=== PATIENT | male | born 1970 | race Two or more races ===

== ENCOUNTER 2024-12-18 15:57 | Emergency (ER) | payer MEDICAID, SELFPAY ==
[2024-12-18 15:59] VITALS: BMI 34.8
[2024-12-18 16:50] VITALS: BP 147/82; PULSE 68; RESP 18; TEMP 37.2; O2SAT 95
--- NOTE | 2024-12-18 17:30 | PD.EDSKIN ---
ED Skin Abcess FB-RME/HPI General Chief complaint: Skin/Abscess/Foreign Body Stated complaint: ABCESS LEFT BUTTOCK x 2 MONTHS, SENT FROM CLINIC Time Seen by Provider: 12/18/24 17:07 Arrival date/time: 12/18/24 15:57 Mode of arrival: ambulatory Limitations: no limitations RME / HPI RME / HPI narrative: 54-year-old male presents for evaluation of perianal abscess x 2 months. Patient reports sharp, constant pain in his left perianal region radiating to his testicles. He states that he was seen by primary care today who advised him to come to the ED for further evaluation and treatment. He reports that his has been expressing purulent drainage from his abscess daily. He denies testicular pain, testicular swelling, skin changes to testicular region. Denies fever, chills, chest pain, shortness of breath. He notes that he had to have a perianal abscess surgically excised in April from which he recovered well with no reported complication. Related Data Previous Rx's ?Medication ?Instructions ?Recorded amoxicillin 875 mg-potassium 1 tab PO BID 10 days #20 tabs 12/18/24 clavulanate 125 mg tablet doxycycline hyclate 100 mg capsule 100 mg PO BID 10 days #20 caps 12/18/24 ibuprofen 800 mg tablet 800 mg PO Q8H PRN pain #14 tabs 12/18/24 Allergies Allergy/AdvReac Type Severity Reaction Status Date / Time No Known Allergies Allergy Verified 12/19/24 10:19 Review of Systems Constitutional Constitutional: Denies excessive sweating, Denies fever(s), Denies headache(s) and Denies night sweats Eyes Eyes: Denies blurry vision and Denies change in vision ENT Ears, Nose, Mouth, and Throat: Denies facial pain and Denies headache(s) Cardiovascular Cardiovascular: Denies chest pain, Denies dyspnea and Denies leg edema Respiratory Respiratory: Denies cough and Denies dyspnea Gastrointestinal Gastrointestinal: Denies nausea and Denies vomiting Genitourinary Genitourinary: Denies dysuria, Denies flank pain, Denies genital pain, Denies hematospermia, Denies hematuria, Denies penile discharge, Denies scrotal swelling, Denies testicular mass and Denies testicular pain Musculoskeletal Musculoskeletal: Denies abnormal gait, Denies arthralgias and Denies tingling Integumentary/Breasts Skin/Breast: Reports changing lesions, Reports erythema, Reports furuncle, Reports new lesions, Reports non-healing lesions, Denies rash, Reports sores and Denies wounds Neurologic Neurologic: Denies abnormal gait, Denies headache(s) and Denies tingling Endocrine Endocrine: Denies excessive sweating Past Medical History Past Medical History NEUROLOGIC: Negative Neurological Disorders or Seizures CARDIAC: Negative Cardiac Disorders or Congestive Heart Failure RESPIRATORY: Negative Chronic Obstructive Pulmonary Disease (COPD) or Asthma GASTROINTESTINAL: Negative Gastrointestinal Disorders GENITOURINARY: Negative Genitourinary Disorders or Renal Disease MUSCULOSKELETAL: Negative Musculoskeletal Disorders ENDOCRINE: Negative Endocrine Disorders, Diabetes Mellitus Type 1 or Diabetes Mellitus Type 2 HEMATOLOGIC: Negative Blood Disorders or Sickle Cell Disease OTHER HISTORY: Negative Autoimmune Disease, Blood Transfusions, Blood Transfusion Reaction, Anesthesia Reactions, MRSA, Vancomycin-Resistant Enterococci, Clostridium Difficile or Cancer Family History FAMILY HISTORY: Negative Family Psychiatric Problems, Family Respiratory Disorders, Family Cardiac Disorders, Family Gastrointestinal Problems, Family Cancer, Family Surgery or Family Anesthesia Reaction Surgical History SURGICAL: Negative Abdominal Surgery or Nephrectomy Social History SMOKING STATUS: Never smoker ED Exam General Limitations: Present no limitations General appearance: Present alert and in no apparent distress Head Head exam: Present atraumatic and normocephalic Eye Eye exam: Present normal appearance and EOMI ENT ENT exam: Present mucous membranes moist Neck Neck exam: Present normal inspection and full ROM Chest Chest inspection: Present normal inspection and symmetric chest wall rise Respiratory Respiratory exam: Present normal lung sounds bilaterally; Absent respiratory distress Cardiovascular Cardiovascular exam: Present regular rate and +S1 Abdominal Exam Abdominal exam: Present soft; Absent distention Rectal Exam Rectal exam: Present normal rectal tone and other (Superior perirectal abscess with purulent drainage and mild surrounding erythema. No tenderness or swelling to scrotal skin. No induration or crepitus to perianal and scrotal region. No overlying skin changes.) exam: Present normal testicular lie; Absent testicular tenderness or scrotal swelling Expanded Exam exam: Present erythema; Absent induration Extremities Exam Extremities exam: Present normal inspection and full ROM Back Exam Back exam: Present normal inspection and full ROM Neurological Exam Neurological exam: Present alert and normal gait Psychiatric Psychiatric exam: Present normal affect Skin Skin exam: Present warm and dry Course Quality Measures none Orders Category Date Time Status Amoxicillin/Pot Clav 875 [Augmentin 875] Med 12/18/24 17:25 Discontinued 1 tab PO X1 ONE Doxycycline [Vibramycin] Med 12/18/24 17:25 Discontinued 100 mg PO X1 ONE HYDROcodone*/APAP 7.5/325 [Reading 7.5/325] Med 12/18/24 17:25 Discontinued 1 tab PO X1 ONE Vital Signs Vital signs: Vital Signs Temperature 98.9 F 12/18/24 16:50 Pulse Rate 68 12/18/24 16:50 Respiratory Rate 18 12/18/24 16:50 Blood Pressure 147/82 H 12/18/24 16:50 Pulse Oximetry (%) 95 12/18/24 16:50 Oxygen Delivery Method Room Air 12/18/24 16:50 Pulse ox 95% on room air, within normal limits. Skin / Abscess / Foreign Body MDM Narrative MDM Narrative:: 54-year-old male presented for evaluation of perianal abscess. Patient reported history of excision of similar lesion in April. Vital signs reassuring. Actively draining abscess on evaluation with mild erythema. Clinical presentation not consistent with cellulitis. No overlying skin changes and no tenderness to testicular palpation therefore less concern for Rosangela's gangrene at this time. Reassuring vital signs point away from systemic infection currently. Ultimately patient was discharged with outpatient antibiotics and plan to follow-up with primary care within the week. I discussed extensively with the patient need for good hygiene practices and advised him to stop having his expressed the lesion at this time. We discussed sitz bath's and possible need for recurrent excision if his lesion does not improve. Patient was given the opportunity to ask questions and vocalized understanding of the plan. Patient stable at time of discharge. Patient data External records reviewed:: [facility] previous records Clinical information provided by:: patient and spouse Social determinants that could affect healthcare access:: none Patient has the following chronic illnesses:: None reported. How is presenting disease/condition affected by chronic disease/condition?: no chronic disease Evaluation data The following diagnostics were reviewed and interpreted by me:: other (specify) Lab and/or radiology exams considered but not ordered:: Considered not ordered. Interpretation Summary: Considered not ordered. Medications / Prescriptions Medications or Prescriptions considered but not ordered:: Rx given. Medication administrations:: Medication Administration History Discontinued Medications Hydrocodone Bitart/Acetaminophen (Hydrocodone/Apap 7.5/325 Tablet) 1 tab PO X1 ONE Stop: 12/18/24 17:26 Last Admin: 12/18/24 17:45 Dose: 1 tab Documented By: NADINE Amoxicillin/Clavulanate Potassium (Amoxicillin/Pot Clav 875 Tablet) 1 tab PO X1 ONE Stop: 12/18/24 17:26 Last Admin: 12/18/24 17:46 Dose: 1 tab Documented By: NADINE Doxycycline Hyclate (Doxycycline 100 Mg Tablet) 100 mg PO X1 ONE Stop: 12/18/24 17:26 Last Admin: 12/18/24 17:46 Dose: 100 mg Documented By: NADINE Rx given. Consultations Consultation(s) initiated? (list below): No Diagnosis Skin/Abscess Differential Diagnosis: abscess of skin or subcutaneous tissue, herpes zoster, cellulitis and other (Foreign years gangrene, cellulitis.) Most likely diagnosis given after review of the tests above:: Perianal abscess. Admission Indicated Admission indicated?: not indicated Admission Request Was there a request for admission?: No Disposition Plan Disposition Plan: Discharge Discharge Attestation Discharge Attestation: The patient and all family members were given an opportunity to ask questions and understood the discharge instructions. Discharge instructions specifically effects, indications for sooner follow up or return to the emergency department, and the expected course of current diagnosis. Patient condition: Stable Discharge Plan Plan Patient Disposition: HOME (Self Care) Discharge Disposition comment: stable Prescriptions/Referrals Prescriptions/Med Rec: New amoxicillin-pot clavulanate 875-125 mg tablet 1 tab PO BID 10 Days Qty: 20 0RF doxycycline hyclate 100 mg capsule 100 mg PO BID 10 Days Qty: 20 0RF ibuprofen 800 mg tablet 800 mg PO Q8H PRN (Reason: pain) Qty: 14 0RF Problem List Clinical Impression: Perianal abscess Impression comment: Take Augmentin and doxycycline twice daily for abscess. Take Tylenol or ibuprofen every 6 hours for pain. Do sitz bath's (shallow, warm bath with Epsom salt) 3 times daily for the next x 4 days. Follow-up with primary care within the next week for wound recheck. Return to the ED if your symptoms worsen or change. Patient/Caregiver Discharge Instructions Education Materials: ED ABSCESS Larisa-Anal Abx only Print Language: Armenian Stand Alone Forms: Ciara Award Info., Patient Portal Info Letter PA/MOI Supervising Physician PA/MOI Supervising Physician: Dr. Viera
[2024-12-18] MEDS: HYDROcodone/APAP 7.5/325 TABLET 1 TAB PO (17:45)
[2024-12-18] MEDS: AMOXICILLIN/POT CLAV 875 TABLET 1 TAB PO (17:46)
[2024-12-18] MEDS: DOXYCYCLINE 100 MG TABLET PO (17:46)
== END 2024-12-18 18:04 | disposition home or self-care (01) ==
LOC: SERX 17:40
PROVIDERS: Emergency Provider Emergency Medicine; PCP Nurse Practitioner Family
DX: K61.0 Anal abscess (principal)
CPT/HCPCS: 99283; A9270

== ENCOUNTER → 2024-12-18 | Outpatient (BNVA) | payer MEDICAID, SELFPAY | END | disposition home or self-care (01) | PROVIDERS: PCP Nurse Practitioner Family; Referring Provider Nurse Practitioner Family; Visit Provider Nurse Practitioner Family | DX: L02.215 Cutaneous abscess of perineum (principal) | CPT/HCPCS: 99214 ==

== ENCOUNTER → 2024-12-19 | Outpatient (BNVA) | payer MEDICAID, SELFPAY | END | disposition home or self-care (01) | PROVIDERS: PCP Nurse Practitioner Family; Referring Provider Nurse Practitioner Family; Visit Provider Nurse Practitioner Family | DX: L02.215 Cutaneous abscess of perineum (principal) | CPT/HCPCS: 99212; G0463 ==

== ENCOUNTER → 2024-12-22 | Outpatient (CLI) | payer MEDICAID, SELFPAY ==
--- NOTE | 2024-12-22 14:00 | XR_ITS ---
Examination: CT abdomen, without intravenous contrast. CT pelvis, without intravenous contrast. CT abdomen, with intravenous contrast. CT pelvis, with intravenous contrast. 2-D sagittal coronal reconstructions. Date and time of exam:December 22, 2024 at 1445 hours Comparison May 07, 2024 INDICATIONS: Abdominal pain Rectal pain and swelling today CTDI: vol (mGy) 28.2 DLP: (mGycm) 1480 Technique: Multiple 3.0 axial images of the abdomen and pelvis without intravenous contrast, 3.0 mm slice thickness. Multiple 3.0 postcontrast images abdomen and pelvis also obtained, post intravenous injection 60 cc [id number] 2-D sagittal and coronal reconstructions. Low dose protocols were performed. One or more of the following dose reduction techniques were used; automated exposure control, adjustment of the mA and/or KV according to patient size, use of iterative reconstruction technique. Findings: Diffuse fatty infiltration throughout the liver no focal liver or splenic lesions No gallstones No pancreatic or adrenal mass No renal or ureteral calculi, no hydronephrosis Aorta normal size Normal appendix No bowel obstruction No diverticulitis Normal seminal vesicles No prostatomegaly Rectal wall does not appear thickened Mild left perianal inflammatory change, axial image 231 through 243 with small fistulous tract extending from the left anus to the left intergluteal fold No perianal abscess Osseous structures intact IMPRESSION: Left perianal inflammatory change Small fistulous tract from the left anus to the left intergluteal fold No perianal abscess
[2024-12-22 14:31] LABS: Alanine Aminotransferase 17 U/L (10-49); Albumin, Serum 4.2 gm/dL (3.5-5.0); Albumin/Globulin Ratio 1.4 (1.2-2.2); Alkaline Phosphatase 64 U/L (46-116); Anion Gap 6 (7-16); Aspartate Amino Transferase 21 U/L (0-34); BUN/Creatinine Ratio 21 Ratio (12-20); Bilirubin,Total 0.5 mg/dL (0.3-1.2); Blood Urea Nitrogen 21 mg/dL (9-23); Calcium 8.9 mg/dL (8.3-10.6); Calcium (Corrected) 8.9 mg/dL (8.5-10.1); Carbon Dioxide 25.7 mMol/L (20.0-31.0); Chloride 109 mMol/L (98-107); Globulin 2.9 gm/dL (2.3-3.5); Glucose 97 mg/dL (74-106); Osmolality,Calculated 284 (275-295); Potassium 4.4 mMol/L (3.4-5.1); Sodium 141 mMol/L (136-145); Total Protein 7.1 gm/dL (5.7-8.2); eGFR > 60 See Note
== END | disposition home or self-care (01) ==
LOC: SCAT 13:30
PROVIDERS: PCP Nurse Practitioner Family; Referring Provider Nurse Practitioner Family; Visit Provider Nurse Practitioner Family
DX: K62.89 Other specified diseases of anus and rectum (principal); K61.0 Anal abscess
CPT/HCPCS: 36415; 74178; 80053; A4649; Q9967

== ENCOUNTER → 2024-12-24 | Outpatient (BNVA) | payer MEDICAID, SELFPAY | END | disposition home or self-care (01) | PROVIDERS: PCP Nurse Practitioner Family; Referring Provider Nurse Practitioner Family; Visit Provider Nurse Practitioner Family | DX: Z71.2 Person consulting for explanation of examination or test findings (principal); K61.0 Anal abscess | CPT/HCPCS: 99212; G0463 ==

== ENCOUNTER 2025-01-02 13:41 | Outpatient (AMB) | payer MEDICAID, SELFPAY ==
--- NOTE | 2025-01-02 13:53 | PD.GSCLVISIT ---
Vital Signs - [facility] 01/02/25 14:01 Height 1.68 m Height Method Measured Weight 96.842 kg Weight Measurement Method Standing Scale BMI 34.4 BP 150/82 H Blood Pressure Source Automatic Cuff Blood Pressure Location Left Upper Arm Position Sitting Respiration 18 Pulse 69 Pulse Source Monitor Temp 98.4 F Temp Source Temporal Artery Scan Pulse Oximetry (%) 94 L Oxygen Delivery Method Room Air Med/Allergies Allergies & Medications Allergies No Known Allergies Allergy (Verified 01/02/25 14:02) Medication Reconciliation ibuprofen 800 mg tablet 800 mg PO Q8H PRN pain #14 tabs 12/18/24 [Rx Confirmed 01/02/25] metronidazole 1 % topical cream 1 applic topical BID Anal fistula #60 grams 01/02/25 [Rx] MA Intake Visit Data Collection New Patient or Established: New Patient (never been to [facility]) Seen by Clinical Staff ONLY (RN/MA): No Reason for Visit:: ANAL ABCESS Pain Present Currently: Yes Pain Location: Buttock (LEFT GLUTE) Pain scale:: 8 Enrollment Services Vice President Required: No PCP or OBGYN visit in last 3 months: Yes Hx Now: No Do You Feel Safe at Home: Yes Authorities Contacted: N/A Smoking Status Smoking Status: Never smoker Immunization / Flu Flu Vaccine in the Last 12 Months: No Flu Vaccine Exclusion Criteria: No Exclusion Criteria Past Medical History Past Medical History NEUROLOGIC: Negative Neurological Disorders or Seizures CARDIAC: Negative Cardiac Disorders or Congestive Heart Failure RESPIRATORY: Negative Chronic Obstructive Pulmonary Disease (COPD) or Asthma GASTROINTESTINAL: Negative Gastrointestinal Disorders GENITOURINARY: Negative Genitourinary Disorders or Renal Disease ENDOCRINE: Negative Endocrine Disorders, Diabetes Mellitus Type 1 or Diabetes Mellitus Type 2 HEMATOLOGIC: Negative Blood Disorders or Sickle Cell Disease OTHER HISTORY: Negative Autoimmune Disease, Blood Transfusions, Blood Transfusion Reaction, Anesthesia Reactions, MRSA, Vancomycin-Resistant Enterococci, Clostridium Difficile or Cancer Family History FAMILY HISTORY: Negative Family Psychiatric Problems, Family Respiratory Disorders, Family Cardiac Disorders, Family Gastrointestinal Problems, Family Cancer, Family Surgery or Family Anesthesia Reaction Surgical History SURGICAL: Negative Abdominal Surgery or Nephrectomy Social History SMOKING STATUS: Smoking status: Never smoker ALCOHOL: Alcohol Intake: Current ALCOHOL FREQUENCY: Alcohol Intake Frequency: holidays/special occasions only HOUSING: Housing: House LIVES WITH: Lives With: Children, Family and Spouse HPI HPI Narrative 54M referred for perianal fistula. Pt reportedly has had gluteal abscesses treated with antibiotics multiple times since 2018, but 04/2024 underwent I&D of a left gluteal abscess and was advised that a fistula might have already been developed or that one could develop. Pt states he healed well initially but for the last couple of months he has noted swelling to that same area of the left gluteus as well as drainage that tends to occur almost daily. He states there is some variance so that some days there is more drainage than others, but his BMs remain soft without any straining or diarrhea. Pt denies any fever or malaise and has never had a colonoscopy. He felt the symptoms worsened in the past 2 weeks and he was prescribed oral antibiotics which he feels have helped the pain somewhat. He has taken a sitz bath once but states his cleanses the area with warm water which improves the pain PMH: Perianal abscess PSHx: I&D 04/2024 Meds: Tylenol and ibuprofen PRN Allergies: NKDA Social hx: Nonsmoker Family hx: No known IBD or malignancy ROS Review of Systems Systems Reviewed: All systems reviewed, normal except as documented Objective/Exam General General Appearance: alert, cooperative and well groomed Resp Respiratory exam: Absent respiratory distress Rectal Rectal exam: Present other (left perianal fistula opening at the anterior perineum approx 2cm from anal verge) Results CT reviewed Assessment & Plan Diagnosis / Problem List (1) Rectal fistula: Status: Acute Assessment & Plan: 54M with history of gluteal abscess s/p I&D 04/2024 presenting with signs and symptoms of a perianal fistula. I explained that surgical management is performed in two stages, first with a seton for drainage and then when drainage significantly decreases, definitive surgery is undertaken which confers risks of fecal incontinence. Pt prefers to hold off on surgery if possible so I offered to apply silver nitrate, explaining that it is less likely to be curative but can be applied every 2 weeks up to ten times. Pt underwent first silver nitrate today and would like to follow up in 2 weeks. In the meantime I will also prescribe metronidazole cream as an adjunct Orders: Orders Silver nitrate applicator topical stick Today Ibuprofen 400mg tablet Today Office Procedures GNS Level of Care Nursing/Assessment Patient Status: Initial/New Patient Nursing Assessment/Reassesment: Medication Reconciliation, Update PMH in EMR and Vital Signs Coordination of Care: Complex Care and Chronic Disease 1-5, Consent,records obtained, informed consent, Education Simp Pt/Fam, Results/Orders obtained and Staff clarify orders New Patient Charge New Patient Point Assignment: 1089 New Patient Point Charge: SURGERY SCHEDULING COORDINATOR Level 3 ([id number]) Medication Given Medication Given Medication Given: Yes Documented Dose Given: 2 Route: PO Medication Given Medication Given Medication Given: Yes Documented Dose Given: 2 Route: Infiitration Office Meds ibuprofen 400 mg tablet Performing Provider: Ele Mckeon MD Performing Location: [facility] Administered by: Ele Mckeon MD on 01/02/25 14:51 Dose Route Admin Location Dispensed Lot Number Expiration Date [employer] Animal Technologist 800 mg PO PO 800 mg [id number] 06/24/25 5785-2198-48 [employer] silver nitrate applicators 75 %-25 % topical stick Performing Provider: Ele Mckeon MD [facility] Administered by: Ele Mckeon MD on 01/02/25 14:51 Dose Route Admin Location Dispensed Lot Number Expiration Date [facility] Lab Animal Technologist 2 ea topical 2 ea [id number] 01/09/27 Patient Portal Questionaires Social History Living Situation History Lives With: Spouse Housing: House Housing Other:: Pt lives with and dtr Tobacco History Smoking Status: Never smoker Alcohol History Alcohol Intake: Current Alcohol Intake Frequency: holidays/special occasions only Substance Use History Substance Use: NEVER Domestic Abuse History Do You Feel Safe at Home: Yes Review of Systems Report any current symptoms Only answer those that you have currently: Past Medical History Past Medical History Have you ever been diagnosed with any of the following: Neurological Problems Seizures: No Cardiology Problems Congestive Heart Failure: No Respiratory Problems Chronic Obstructive Pulmonary Disease (COPD): No Asthma: No Genital/Urinary Problems Renal Disease: No Endocrine Problems Diabetes Mellitus Type 1: No Diabetes Mellitus Type 2: No Blood Problems Sickle Cell Disease: No Other Problems Autoimmune Disease: No Blood Transfusions: No Blood Transfusion Reaction: No Anesthesia Reactions: No MRSA: No Vancomycin-Resistant Enterococci: No Clostridium Difficile: No Cancer: No
[2025-01-02 14:01] VITALS: BP 150/82; PULSE 69; RESP 18; TEMP 36.9; O2SAT 94; BMI 34.4
== END 2025-01-02 14:41 | disposition home or self-care (01) ==
PROVIDERS: PCP Nurse Practitioner Family; Referring Provider Nurse Practitioner Family; Supervising Provider Surgery; Visit Provider Surgery
DX: K60.40 Rectal fistula, unspecified (principal)
CPT/HCPCS: 17250; 99203; A9270; G0463

== ENCOUNTER 2025-01-19 14:54 | Outpatient (AMB) | payer MEDICAID, SELFPAY ==
--- NOTE | 2025-01-19 14:57 | PD.GSCLVISIT ---
[facility] - [facility] 01/19/25 15:01 Height 1.68 m Height Method Measured Weight 98.911 kg Weight Measurement Method Standing Scale BMI 35.0 BP 146/78 H Blood Pressure Source Automatic Cuff Blood Pressure Location Left Upper Arm Position Sitting Respiration 18 Pulse 71 Pulse Source Monitor Temp 98.1 F Temp Source Temporal Artery Scan Pulse Oximetry (%) 92 L Oxygen Delivery Method Room Air Med/Allergies Allergies & Medications Allergies No Known Allergies Allergy (Verified 01/19/25 15:02) Medication Reconciliation ibuprofen 800 mg tablet 800 mg PO Q8H PRN pain #14 tabs 12/18/24 [Rx Confirmed 01/19/25] metronidazole 1 % topical cream 1 applic topical BID Anal fistula #60 grams 01/02/25 [Rx Confirmed 01/19/25] tramadol 50 mg tablet 50 mg PO Q6H PRN pain #30 tabs 01/19/25 [Rx] peg 3350-electrolytes 236 gram-22.74 gram-6.74 gram-5.86 gram solution (Golytely) 240 ml PO Q10M #4,000 mL 01/21/25 [Rx] MA Intake Visit Data Collection New Patient or Established: Established Patient (seen at [facility] within 3 years) Seen by Clinical Staff ONLY (RN/MA): No Pain Present Currently: Yes Pain Location: Buttock Pain scale:: 8 Pain Scale Used: Deshpande-Dias/Numerical Mold Blower Required: No PCP or OBGYN visit in last 3 months: Yes Hx Now: No Do You Feel Safe at Home: Yes Authorities Contacted: N/A Smoking Status Smoking Status: Never smoker Immunization / Flu Flu Vaccine in the Last 12 Months: Yes Flu Vaccine Exclusion Criteria: No Exclusion Criteria Past Medical History Past Medical History NEUROLOGIC: Negative Neurological Disorders or Seizures CARDIAC: Negative Cardiac Disorders or Congestive Heart Failure RESPIRATORY: Negative Chronic Obstructive Pulmonary Disease (COPD) or Asthma GASTROINTESTINAL: Negative Gastrointestinal Disorders GENITOURINARY: Negative Genitourinary Disorders or Renal Disease ENDOCRINE: Negative Endocrine Disorders, Diabetes Mellitus Type 1 or Diabetes Mellitus Type 2 HEMATOLOGIC: Negative Blood Disorders or Sickle Cell Disease OTHER HISTORY: Negative Autoimmune Disease, Blood Transfusions, Blood Transfusion Reaction, Anesthesia Reactions, MRSA, Vancomycin-Resistant Enterococci, Clostridium Difficile or Cancer Family History FAMILY HISTORY: Negative Family Psychiatric Problems, Family Respiratory Disorders, Family Cardiac Disorders, Family Gastrointestinal Problems, Family Cancer, Family Surgery or Family Anesthesia Reaction Surgical History SURGICAL: Negative Abdominal Surgery or Nephrectomy Social History SMOKING STATUS: Smoking status: Never smoker ALCOHOL: Alcohol Intake: Current ALCOHOL FREQUENCY: Alcohol Intake Frequency: holidays/special occasions only HOUSING: Housing: House LIVES WITH: Lives With: Children, Family and Spouse HPI HPI Narrative 54M with history of gluteal abscess s/p I&D 04/2024 presenting with signs and symptoms of a perianal fistula. Patient states after last visit he initially had a few days without drainage, but since then it has returned and is worsened. He also feels that his pain is much worse, he has been unable to work and even finds it hard to sit ROS Review of Systems Systems Reviewed: All systems reviewed, normal except as documented Objective/Exam General General Appearance: alert, cooperative and well groomed Resp Respiratory exam: Absent respiratory distress Assessment & Plan Diagnosis / Problem List (1) Rectal fistula: Status: Acute Assessment & Plan: 54M with history of gluteal abscess s/p I&D 04/2024 presenting with signs and symptoms of a perianal fistula. As his symptoms have worsened patient is now interested in having surgery. I again explained that surgery was performed in 2 steps, first with seton placement which allows for continuous drainage as well as promote healing, and when drainage significantly decreases I will perform second surgery which would be either fistulotomy or ligation of intersphincteric fistula tract. I explained risks which were more associated with the second surgery including pain, bleeding, infection and fecal incontinence as well as fistula persistence/recurrence requiring additional surgeries. Patient expressed understanding and agrees to proceed Plan: Patient requested pain medication in the meantime, I suggest that he try tramadol to avoid the constipation of Hos[place] but he is encouraged to reach out if he feels it is insufficient (2) Encounter for screening colonoscopy: Status: Acute Assessment & Plan: As patient has not yet had a colonoscopy I recommended pursuing one during this procedure. I explained risks of bleeding, perforation requiring emergency surgery as well as the potential need to abort prematurely for safety. Patient expressed understanding and agrees to proceed Office Procedures GNS Level of Care Nursing/Assessment Patient Status: Established Patient Nursing Assessment/Reassesment: Medication Reconciliation, Update PMH in EMR and Vital Signs Coordination of Care: Complex Care and Chronic Disease 1-5, Consent,records obtained, informed consent, Education Simp Pt/Fam, Results/Orders obtained and Staff clarify orders Established Patient Charge Established Patient Point Assignment: 90 Established Patient Point Charge: EP Level 3 (80-115) Patient Portal Questionaires Social History Living Situation History Lives With: Spouse Housing: House Housing Other:: Pt lives with and dtr Tobacco History Smoking Status: Never smoker Alcohol History Alcohol Intake: Current Alcohol Intake Frequency: holidays/special occasions only Substance Use History Substance Use: NEVER Domestic Abuse History Do You Feel Safe at Home: Yes Review of Systems Report any current symptoms Only answer those that you have currently: Past Medical History Past Medical History Have you ever been diagnosed with any of the following: Neurological Problems Seizures: No Cardiology Problems Congestive Heart Failure: No Respiratory Problems Chronic Obstructive Pulmonary Disease (COPD): No Asthma: No Genital/Urinary Problems Renal Disease: No Endocrine Problems Diabetes Mellitus Type 1: No Diabetes Mellitus Type 2: No Blood Problems Sickle Cell Disease: No Other Problems Autoimmune Disease: No Blood Transfusions: No Blood Transfusion Reaction: No Anesthesia Reactions: No MRSA: No Vancomycin-Resistant Enterococci: No Clostridium Difficile: No Cancer: No
[2025-01-19 15:01] VITALS: BP 146/78; PULSE 71; RESP 18; TEMP 36.7; O2SAT 92; BMI 35.0
== END 2025-01-19 15:36 | disposition home or self-care (01) ==
LOC: HODSRG 14:54
PROVIDERS: Family Provider Nurse Practitioner Family; PCP Nurse Practitioner Family; Referring Provider Nurse Practitioner Family; Supervising Provider Surgery; Visit Provider Surgery
DX: K60.40 Rectal fistula, unspecified (principal); Z12.11 Encounter for screening for malignant neoplasm of colon
CPT/HCPCS: 99213; G0463

== ENCOUNTER 2025-01-28 05:40 | Day surgery (SDC) | payer MEDICAID, SELFPAY ==
[2025-01-27 08:41] VITALS: BMI 36.4
[2025-01-27 09:16] LABS: Basophils # (Auto) 0.0 Thou/mm3 (0.0-0.2); Basophils % (Auto) 1 % (0-2.5); Eosinophils # (Auto) 0.2 Thou/mm3 (0.0-0.5); Eosinophils % (Auto) 2 % (0-10); Hematocrit 43.4 % (41.0-53.0); Hemoglobin 14.4 g/dL (13.5-16.0); Immature Granulocytes Auto 0.02 Thou/mm3 (0.00-0.00); Lymphocytes # (Auto) 2.3 Thou/mm3 (1.0-4.8); Lymphocytes % (Auto) 29 % (10-50); Mean Corpuscular HGB Conc 33.2 g/dl (31.0-37.0); Mean Corpuscular Hemoglobin 30.2 pg (25.0-35.0); Mean Corpuscular Volume 91 fL (80-100); Monocytes # (Auto) 0.7 Thou/mm3 (0.0-0.8); Monocytes % (Auto) 9 % (0-12); Neutrophils # (Auto) 4.6 Thou/mm3 (1.8-7.7); Neutrophils % (Auto) 58 % (37-80); Nucleated Red Blood Cell # 0.00 Thou/mm3 (0.00-0.00); Nucleated Red Blood Cell % 0 /100 WBC (0); Platelet Count 276 Thou/mm3 (140-440); RDW Standard Deviation 42.7 fL (35.1-43.9); Red Blood Count 4.77 Miln/mm3 (4.50-5.90); White Blood Count 7.9 Thou/mm3 (3.8-10.6)
[2025-01-27 09:32] LABS: Anion Gap 8 (7-16); BUN/Creatinine Ratio 23 Ratio (12-20); Blood Urea Nitrogen 21 mg/dL (9-23); Calcium 9.3 mg/dL (8.3-10.6); Carbon Dioxide 24.9 mMol/L (20.0-31.0); Chloride 109 mMol/L (98-107); Creatinine (Component) 0.9 mg/dL (0.6-1.3); Estimated Creatinine Clearance 100.5 mL/min (>60); Glucose 103 mg/dL (74-106); Osmolality,Calculated 286 (275-295); Potassium 4.2 mMol/L (3.4-5.1); Sodium 142 mMol/L (136-145); eGFR > 60 See Note
[2025-01-27 09:34] LABS: INR 1.0 (0.9-1.3); Partial Thromboplastin Time 28.7 Seconds (22.0-36.0); Prothrombin Time 10.9 Seconds (9.0-12.2)
[2025-01-28] VITALS (9 sets, daily range): BP systolic 90–140; BP diastolic 57–85; PULSE 44–62; RESP 14–20; TEMP 36.1–36.5; O2SAT 94–99
[2025-01-28] MEDS: RINGERS LACTATED 1000 ML 1,000 ML 20 ML IV (06:40)
--- NOTE | 2025-01-28 06:41 | EKG_ITS ---
[facility] (Formerly [facility]) Test Date: 2025-01-28 Pat Name: PAULETTE NETTLES Department: Room: - Gender: Male Clinical Nursing Instructor: EDIS : 1970 Requested By: Dc Gorman Order Number: [id number] Reading MD: Dc Gorman Measurements Intervals [place] Rate: 52 P: 27 MD: 132 QRS: 44 QRSD: 94 T: 38 QT: 443 QTc: 414 Interpretive Statements SINUS BRADYCARDIA WITH SINUS ARRHYTHMIA POSSIBLE LEFT ATRIAL ENLARGEMENT No previous ECG available for comparison /[id number]/[id number]
--- NOTE | 2025-01-28 07:20 | CHAP ---
Visited briefly with patient giving encouragement and prayer.
--- NOTE | 2025-01-28 08:40 | SUR.PHASEI ---
0840: Pt. arrived with LMA in place, vitals stable, breathing unlabored, no signs of distress, dressing to rectum CDI, no active bleed noted, report received from MD Gorman and Angelina RN.
--- NOTE | 2025-01-28 08:41 | PD.SUROPNT ---
Date of Procedure 01/28/25 Pre Op Diagnosis Perianal fistula Post Op Diagnosis Same Procedure Colonoscopy, examination under anesthesia with seton placement Findings Small rectal polyp, left perianal fistula Procedure Description After discussion of risks and benefits, patient was brought to the operating room and general anesthesia with LMA was induced. He was placed in left lateral decubitus position and underwent colonoscopy which was dictated separately. After colonoscopy patient was transferred to the operating table and placed in lithotomy position with proper padding. He was prepped and draped in usual sterile fashion. A fistula probe was placed through the left perianal fistula tract and introduced through the internal opening at the anal canal. A seton (vessel loop) was tied to the probe using a 0 silk tie and the probe was brought back through the external opening. The seton was then tied to itself using three 0 silk interrupted ties. Left and right pudendal nerve block were performed as well as a local block for total of 30 cc of half percent Marcaine. There was some oozing at the internal opening which was controlled with direct pressure as well as original Surgicel. Patient was returned to supine position and extubated without complication. He was brought to PACU in stable condition Pathology / specimen Other (Rectal polyp from colonoscopy) Estimated Blood Loss 25 Surgeon Ele Mckeon MD Surgical Staff Operation Date: 01/28/25 07:30 Case Staff Anesthesiologist: Dc Gorman
--- NOTE | 2025-01-28 08:47 | ESDS_ITS ---
Planned Discharge Date 01/28/25 DS: Providers Provider Primary care physician: Sherri Umanzor NP Attending Provider on Admission: Ele Mckeon MD Attending Provider on DC: Ele Mckeon MD Discharging Provider: Ele Mckeon MD Diagnosis Discharge Diagnosis (1) Rectal fistula: Status: Acute (2) Encounter for screening colonoscopy: Status: Acute Problem List Completed Was Problem List Reviewed/Reconciled?: Yes Exam Vital Signs Temp Pulse Resp BP Pulse Ox 97 F 48 L 19 140/85 H 96 01/28/25 06:30 01/28/25 06:30 01/28/25 06:30 01/28/25 06:30 01/28/25 06:30 Discharge Plan Plan Patient Disposition: HOME (Self Care) Prescriptions/Referrals Prescriptions/Med Rec: No Action tramadol 50 mg tablet 50 mg PO Q6H MDD 4 tabs PRN (Reason: pain) Qty: 30 0RF Rx Instructions: Take every 6 hours as needed for moderate to severe pain Referrals: Er[facility] POLICE DETECTIVE,Sherri Gustafson NP [Primary Care Provider] - Ele Mckeon MD [Physician] - (You will receive a phone call to confirm a follow-up appointment with me in 6 weeks) Patient/Caregiver Discharge Instructions Other Discharge Activity Instructions:: You may resume sitz baths as needed for pain, swelling and drainage starting tomorrow 01/29 Avoid constipation and diarrhea If you develop worsening pain, fever, difficulty urinating please seek care in ER Education Materials: ED Anal Fistula Print Language: Ethiopian Stand Alone Forms: Ciara Award Info., Patient Portal Info Letter Discharge Order Discharge Orders: Discharge (Routine); Ordered 01/28/25 Ordered By: Ele Mckeon Results Results: Laboratory Laboratory results: results reviewed PROCEDURES: Procedure Date 01/28/25 Procedures Colonoscopy, examination under anesthesia with seton placement
[2025-01-28] MEDS: fentaNYL CIT INJ 50 mCg/ML AMP 2ML 25 MCG IVP (09:44)
--- NOTE | 2025-01-28 10:05 | SUR.PHASEII ---
1005: Pt. AAOx4, vitals stable, breathing unlabored, no complaint of pain or nausea, dressing to rectum CDI, no active bleed noted, pt. tolerated sips of water well, pt. ambulated to wheelchair with steady gait and no assist, no complications. Gave discharge instructions to the pt. and his ride, both verbalized understanding and had no further questions. Pt. left with all personal belongings.
== END 2025-01-28 10:05 | disposition home or self-care (01) ==
PROVIDERS: PCP Nurse Practitioner Family; Referring Provider Surgery; Visit Provider Surgery
PROC: (CPT 45380; principal; 2025-01-28 07:30)
PROC: 0DBE8ZX Excision of Large Intestine, Via Natural or Artificial Opening Endoscopic, Diagnostic (ICD-10-PCS; CPT 45380; 2025-01-28 07:30)
DX: Z12.11 Encounter for screening for malignant neoplasm of colon (principal); D12.8 Benign neoplasm of rectum; K60.30 Anal fistula, unspecified; Z01.810 Encounter for preprocedural cardiovascular examination; R00.1 Bradycardia, unspecified
CPT/HCPCS: 45380; 46020; 36415; 80048; 85025; 85610; 85730; 93005; A4217; A4649; J0131; J0461; J1100; J1885; J2250; J2405; J2704; J3010; J3490; J7120

== ENCOUNTER 2025-03-09 09:24 | Outpatient (AMB) | payer MEDICAID, SELFPAY ==
--- NOTE | 2025-03-09 09:33 | PD.GSCLVISIT ---
Vital Signs - [facility] 03/09/25 09:34 Height 1.68 m Height Method Measured Weight 99.138 kg Weight Measurement Method Standing Scale BMI 35.1 BP 153/91 H Blood Pressure Source Automatic Cuff Blood Pressure Location Right Upper Arm Position Sitting Respiration 18 Pulse 74 Pulse Source Monitor Temp 97.6 F Temp Source Temporal Artery Scan Pulse Oximetry (%) 95 Oxygen Delivery Method Room Air Med/Allergies Allergies & Medications Allergies No Known Allergies Allergy (Verified 03/09/25 09:35) Medication Reconciliation tramadol 50 mg tablet 50 mg PO Q6H PRN pain #30 tabs 01/27/25 [Rx Confirmed 03/09/25] docusate sodium 100 mg capsule (Colace) 100 mg PO QDAY PRN constipation #30 caps 02/02/25 [Rx Confirmed 03/09/25] oxycodone-acetaminophen 5 mg-325 mg tablet (Percocet) 1 tab PO Q6H PRN pain #30 tabs 02/02/25 [Rx Confirmed 03/09/25] oxycodone-acetaminophen 5 mg-325 mg tablet (Percocet) 1 tab PO Q4H PRN pain #30 tabs 02/11/25 [Rx Confirmed 03/09/25] oxycodone-acetaminophen 5 mg-325 mg tablet (Percocet) 1 tab PO Q6H PRN pain #30 tabs 03/09/25 [Rx] MA Intake Visit Data Collection New Patient or Established: Established Patient (seen at [facility] within 3 years) Seen by Clinical Staff ONLY (RN/MA): No Reason for Visit:: POST OP Pain Present Currently: No Pain Scale Used: Deshpande-Dias/Numerical Sales Utility Representative Required: No PCP or OBGYN visit in last 3 months: Yes Hx Now: No Do You Feel Safe at Home: Yes Authorities Contacted: N/A Smoking Status Smoking Status: Former smoker Immunization / Flu Flu Vaccine in the Last 12 Months: Yes Flu Vaccine Exclusion Criteria: Already Received Past Medical History Past Medical History NEUROLOGIC: Negative Neurological Disorders or Seizures CARDIAC: Negative Cardiac Disorders or Congestive Heart Failure RESPIRATORY: Negative Chronic Obstructive Pulmonary Disease (COPD) or Asthma GASTROINTESTINAL: Negative Gastrointestinal Disorders GENITOURINARY: Negative Genitourinary Disorders or Renal Disease ENDOCRINE: Negative Endocrine Disorders, Diabetes Mellitus Type 1 or Diabetes Mellitus Type 2 HEMATOLOGIC: Negative Blood Disorders or Sickle Cell Disease OTHER HISTORY: Negative Hospitalization, Autoimmune Disease, Shingles, Blood Transfusions, Blood Transfusion Reaction, Anesthesia Reactions, MRSA, Vancomycin-Resistant Enterococci, Clostridium Difficile or Cancer Family History FAMILY HISTORY: Positive Family Cancer and Family Surgery; Negative Family Psychiatric Problems, Family Respiratory Disorders, Family Cardiac Disorders, Family Gastrointestinal Problems or Family Anesthesia Reaction Surgical History SURGICAL: Negative Abdominal Surgery or Nephrectomy Social History SMOKING STATUS: Smoking status: Former smoker ALCOHOL: Alcohol Intake: Current ALCOHOL FREQUENCY: Alcohol Intake Frequency: holidays/special occasions only HOUSING: Housing: House LIVES WITH: Lives With: Children, Family and Spouse HPI HPI Narrative 54M with history of gluteal abscess s/p I&D 04/2024 presenting with signs and symptoms of a perianal fistula now s/p diagnostic colonoscopy and EUA with seton placement 01/28/25, here for planned follow up. Pt reports feeling much better overall, his pain has significantly improved compared to before surgery but he still has some episodes of pain especially when sitting on hard chairs. He states his drainage has overall decreased but it tends to vary, sometimes being more than others. Pt had some constipation related to taking percocet but he is now taking tylenol and motrin and his BMs are soft without any straining ROS Review of Systems Systems Reviewed: All systems reviewed, normal except as documented Objective/Exam General General Appearance: alert, cooperative and well groomed Resp Respiratory exam: Absent respiratory distress Rectal Rectal exam: Present other (left perianal seton in place with some purulent drainage) Results Colonoscopy report and pathology reviewed Assessment & Plan Diagnosis / Problem List (1) Rectal fistula: Status: Acute Assessment & Plan: 54M with history of gluteal abscess s/p I&D 04/2024 presenting with signs and symptoms of a perianal fistula now s/p diagnostic colonoscopy and EUA with seton placement 01/28/25, here for planned follow up. Pt is overall clinically well but continuing to have perianal drainage. I counseled that the definitive surgery should take place when drainage is noticeably decreased. All questions were answered and pt is agreeable with this plan Plan: F/u in 3 weeks (2) Encounter to discuss colonoscopy results: Status: Acute Assessment & Plan: 54M with history of gluteal abscess s/p I&D 04/2024 presenting with signs and symptoms of a perianal fistula now s/p diagnostic colonoscopy with findings of <1cm tubular adenoma Plan: Surveillance colonoscopy in 7 years Office Procedures GNS Level of Care Nursing/Assessment Patient Status: Established Patient Nursing Assessment/Reassesment: Medication Reconciliation, Orthostatic Vitals, Update PMH in EMR and Vital Signs Coordination of Care: Complex Care and Chronic Disease 1-5, Education Complex Pt/Fam, Consent,records obtained, informed consent, Results/Orders obtained and Staff clarify orders Established Patient Charge Established Patient Point Assignment: 105 Established Patient Point Charge: EP Level 3 (80-115) Patient Portal Questionaires Social History Living Situation History Lives With: Spouse Housing: House Housing Other:: Pt lives with and dtr Tobacco History Smoking Status: Former smoker Alcohol History Alcohol Intake: Current Alcohol Intake Frequency: holidays/special occasions only Substance Use History Substance Use: NEVER Domestic Abuse History Do You Feel Safe at Home: Yes Review of Systems Report any current symptoms Only answer those that you have currently: Past Medical History Past Medical History Have you ever been diagnosed with any of the following: Neurological Problems Seizures: No Cardiology Problems Congestive Heart Failure: No Respiratory Problems Chronic Obstructive Pulmonary Disease (COPD): No Asthma: No Genital/Urinary Problems Renal Disease: No Endocrine Problems Diabetes Mellitus Type 1: No Diabetes Mellitus Type 2: No Blood Problems Sickle Cell Disease: No Other Problems Hospitalization: No Autoimmune Disease: No Shingles: No Blood Transfusions: No Blood Transfusion Reaction: No Anesthesia Reactions: No MRSA: No Vancomycin-Resistant Enterococci: No Clostridium Difficile: No Cancer: No
[2025-03-09 09:34] VITALS: BP 153/91; PULSE 74; RESP 18; TEMP 36.4; O2SAT 95; BMI 35.1
== END 2025-03-09 10:01 | disposition home or self-care (01) ==
LOC: HODSRG 09:24
PROVIDERS: PCP Nurse Practitioner Family; Referring Provider Nurse Practitioner Family; Supervising Provider Surgery; Visit Provider Surgery
DX: Z71.2 Person consulting for explanation of examination or test findings (principal); D12.6 Benign neoplasm of colon, unspecified
CPT/HCPCS: 99213; G0463

== ENCOUNTER 2025-03-30 09:24 | Outpatient (AMB) | payer MEDICAID, SELFPAY ==
[2025-03-30 09:31] VITALS: BP 158/84; PULSE 70; RESP 18; TEMP 36.4; O2SAT 95; BMI 35.6
--- NOTE | 2025-03-30 09:31 | GSCOFFNT_ITS ---
[facility] - [facility] 03/30/25 09:31 Height 1.68 m Height Method Measured Weight 100.698 kg Weight Measurement Method Standing Scale BMI 35.6 BP 158/84 H Blood Pressure Source Automatic Cuff Blood Pressure Location Left Upper Arm Position Sitting Respiration 18 Pulse 70 Pulse Source Monitor Temp 97.5 F Temp Source Temporal Artery Scan Pulse Oximetry (%) 95 Oxygen Delivery Method Room Air Med/Allergies Allergies & Medications Allergies No Known Allergies Allergy (Verified 03/30/25 09:32) Medication Reconciliation tramadol 50 mg tablet 50 mg PO Q6H PRN pain #30 tabs 01/27/25 [Rx Confirmed 03/30/25] docusate sodium 100 mg capsule (Colace) 100 mg PO QDAY PRN constipation #30 caps 02/02/25 [Rx Confirmed 03/30/25] oxycodone-acetaminophen 5 mg-325 mg tablet (Percocet) 1 tab PO Q6H PRN pain #30 tabs 02/02/25 [Rx Confirmed 03/30/25] oxycodone-acetaminophen 5 mg-325 mg tablet (Percocet) 1 tab PO Q4H PRN pain #30 tabs 02/11/25 [Rx Confirmed 03/30/25] oxycodone-acetaminophen 5 mg-325 mg tablet (Percocet) 1 tab PO Q6H PRN pain #30 tabs 03/30/25 [Rx] MA Intake Visit Data Collection New Patient or Established: Established Patient (seen at [facility] within 3 years) Seen by Clinical Staff ONLY (RN/MA): No Reason for Visit:: 3 WEEK F/U Pain Present Currently: No Pain Scale Used: Deshpande-Dias/Numerical Business Continuity Coordinator Required: No PCP or OBGYN visit in last 3 months: Yes Hx Now: No Do You Feel Safe at Home: Yes Authorities Contacted: N/A Smoking Status Smoking Status: Former smoker Immunization / Flu Flu Vaccine in the Last 12 Months: No Flu Vaccine Exclusion Criteria: Already Received Past Medical History Past Medical History NEUROLOGIC: Negative Neurological Disorders or Seizures CARDIAC: Negative Cardiac Disorders or Congestive Heart Failure RESPIRATORY: Negative Chronic Obstructive Pulmonary Disease (COPD) or Asthma GASTROINTESTINAL: Negative Gastrointestinal Disorders GENITOURINARY: Negative Genitourinary Disorders or Renal Disease ENDOCRINE: Negative Endocrine Disorders, Diabetes Mellitus Type 1 or Diabetes Mellitus Type 2 HEMATOLOGIC: Negative Blood Disorders or Sickle Cell Disease OTHER HISTORY: Negative Hospitalization, Autoimmune Disease, Shingles, Blood Transfusions, Blood Transfusion Reaction, Anesthesia Reactions, MRSA, Vancomycin-Resistant Enterococci, Clostridium Difficile or Cancer Family History FAMILY HISTORY: Positive Family Cancer and Family Surgery; Negative Family Psychiatric Problems, Family Respiratory Disorders, Family Cardiac Disorders, Family Gastrointestinal Problems or Family Anesthesia Reaction Surgical History SURGICAL: Negative Abdominal Surgery or Nephrectomy Social History SMOKING STATUS: Smoking status: Former smoker ALCOHOL: Alcohol Intake: Current ALCOHOL FREQUENCY: Alcohol Intake Frequency: holidays/special occasions only HOUSING: Housing: House LIVES WITH: Lives With: Children, Family and Spouse HPI HPI Narrative HISTORY OF PRESENT ILLNESS I, Ele Mckeon, have obtained verbal consent from the patient, to be recorded during this encounter which may include, but not limited to, medical history, examination, treatment plans, and relevant health information.? Patient was informed that recording will be read and reviewed by myself before inclusion in the medical chart. The patient is here for a follow-up of perianal seton placement on 01/28/2025. He reports an improvement in his condition, with a significant reduction in both drainage and pain. He experiences discomfort when sitting for extended periods, which he manages by standing and walking intermittently. The rubber band swells and rubs against his skin during movement, causing irritation. Bowel movements are generally smooth, although he occasionally experiences constipation due to the medication, which he manages with stool softeners. He has noticed a decrease in the amount of liquid drainage, but an increase in blood, which he attributes to the rubbing of the rubber band. Daily drainage is present but significantly less than before. He has identified a small lump that causes pain when compressed by clothing or touched. This lump is different from the one he had previously. He expresses concern about the potential recurrence of his symptoms post-surgery. He finds relief from the prescribed pain medication, which takes effect within half an hour of administration. ROS Review of Systems Systems Reviewed: All systems reviewed, normal except as documented Objective/Exam General General Appearance: alert, cooperative and well groomed Resp Respiratory exam: Absent respiratory distress Rectal Rectal exam: Present other (left perianal seton in place with external opening approx 2cm from and posterior to anal verge) Assessment & Plan Diagnosis / Problem List (1) Rectal fistula: Status: Acute Assessment & Plan: The patient's condition has shown significant improvement, with a notable reduction in drainage and pain. He reports occasional constipation likely due to pain medication and manages it with stool softeners. He experiences irritation and pain from the seton, especially when sitting for long periods or when the rubber band rubs against his skin. As his drainage has significantly decreased I explained that we can proceed with definitive surgery which will be a ligation of intersphincteric fistula tract. The potential risks associated with the surgery, including fistula recurrence, infection, urinary retention, and temporary bowel incontinence, have been thoroughly discussed. The patient was informed that the surgery might be more painful than the first due to the need for an incision and dissection, and it may take up to 6 weeks or longer to fully heal. A prescription for pain medication will be provided. Plan: Plan for ligation of intersphincteric fistula tract Wed Apr 29 Pt encouraged to reach out before then if concerns or questions arise Office Procedures GNS Level of Care Nursing/Assessment Patient Status: Established Patient Nursing Assessment/Reassesment: Medication Reconciliation, Update PMH in EMR and Vital Signs Coordination of Care: Complex Care and Chronic Disease 1-5, Education Complex Pt/Fam, Consent,records obtained, informed consent, Results/Orders obtained and Staff clarify orders Established Patient Charge Established Patient Point Assignment: 95 Established Patient Point Charge: EP Level 3 (80-115) Patient Portal Questionaires Social History Living Situation History Lives With: Spouse Housing: House Housing Other:: Pt lives with and dtr Tobacco History Smoking Status: Former smoker Alcohol History Alcohol Intake: Current Alcohol Intake Frequency: holidays/special occasions only Substance Use History Substance Use: NEVER Domestic Abuse History Do You Feel Safe at Home: Yes Review of Systems Report any current symptoms Only answer those that you have currently: Past Medical History Past Medical History Have you ever been diagnosed with any of the following: Neurological Problems Seizures: No Cardiology Problems Congestive Heart Failure: No Respiratory Problems Chronic Obstructive Pulmonary Disease (COPD): No Asthma: No Genital/Urinary Problems Renal Disease: No Endocrine Problems Diabetes Mellitus Type 1: No Diabetes Mellitus Type 2: No Blood Problems Sickle Cell Disease: No Other Problems Hospitalization: No Autoimmune Disease: No Shingles: No Blood Transfusions: No Blood Transfusion Reaction: No Anesthesia Reactions: No MRSA: No Vancomycin-Resistant Enterococci: No Clostridium Difficile: No Cancer: No
== END 2025-03-30 10:12 | disposition home or self-care (01) ==
LOC: HODSRG 09:24
PROVIDERS: PCP Nurse Practitioner Family; Referring Provider Nurse Practitioner Family; Supervising Provider Surgery; Visit Provider Surgery
DX: Z48.89 Encounter for other specified surgical aftercare (principal); K60.40 Rectal fistula, unspecified
CPT/HCPCS: 99213; G0463

== ENCOUNTER 2025-04-20 15:20 | Outpatient (AMB) | payer MEDICAID, SELFPAY ==
[2025-04-20 15:37] VITALS: BP 128/87; PULSE 65; RESP 18; TEMP 36.5; O2SAT 97; BMI 36.0
--- NOTE | 2025-04-20 15:37 | PD.GSCLVISIT ---
Vital Signs - [facility] 04/20/25 15:37 Height 1.68 m Height Method Measured Weight 101.661 kg Weight Measurement Method Standing Scale BMI 36.0 BP 128/87 H Blood Pressure Source Automatic Cuff Blood Pressure Location Left Upper Arm Position Sitting Respiration 18 Pulse 65 Pulse Source Monitor Temp 97.7 F Temp Source Temporal Artery Scan Pulse Oximetry (%) 97 Oxygen Delivery Method Room Air Med/Allergies Allergies & Medications Allergies No Known Allergies Allergy (Verified 04/20/25 15:38) Medication Reconciliation tramadol 50 mg tablet 50 mg PO Q6H PRN pain #30 tabs 01/27/25 [Rx Confirmed 04/20/25] docusate sodium 100 mg capsule (Colace) 100 mg PO QDAY PRN constipation #30 caps 02/02/25 [Rx Confirmed 04/20/25] oxycodone-acetaminophen 5 mg-325 mg tablet (Percocet) 1 tab PO Q6H PRN pain #30 tabs 02/02/25 [Rx Confirmed 04/20/25] oxycodone-acetaminophen 5 mg-325 mg tablet (Percocet) 1 tab PO Q4H PRN pain #30 tabs 02/11/25 [Rx Confirmed 04/20/25] oxycodone-acetaminophen 5 mg-325 mg tablet (Percocet) 1 tab PO Q6H PRN pain #30 tabs 03/30/25 [Rx Confirmed 04/20/25] oxycodone-acetaminophen 5 mg-325 mg tablet (Percocet) 1 tab PO Q4H PRN pain #30 tabs 04/20/25 [Rx] MA Intake Visit Data Collection New Patient or Established: Established Patient (seen at [facility] within 3 years) Seen by Clinical Staff ONLY (RN/MA): No Reason for Visit:: LUMP ANUS Pain Present Currently: Yes Pain Location: Rectum Pain scale:: 5 Pain Scale Used: Deshpande-Dias/Numerical Index Clerk Required: No PCP or OBGYN visit in last 3 months: Yes Hx Now: No Do You Feel Safe at Home: Yes Authorities Contacted: N/A Smoking Status Smoking Status: Former smoker Immunization / Flu Flu Vaccine in the Last 12 Months: Yes Flu Vaccine Exclusion Criteria: Already Received Past Medical History Past Medical History NEUROLOGIC: Negative Neurological Disorders or Seizures CARDIAC: Negative Cardiac Disorders or Congestive Heart Failure RESPIRATORY: Negative Chronic Obstructive Pulmonary Disease (COPD) or Asthma GASTROINTESTINAL: Negative Gastrointestinal Disorders GENITOURINARY: Negative Genitourinary Disorders or Renal Disease ENDOCRINE: Negative Endocrine Disorders, Diabetes Mellitus Type 1 or Diabetes Mellitus Type 2 HEMATOLOGIC: Negative Blood Disorders or Sickle Cell Disease OTHER HISTORY: Negative Hospitalization, Autoimmune Disease, Shingles, Blood Transfusions, Blood Transfusion Reaction, Anesthesia Reactions, MRSA, Vancomycin-Resistant Enterococci, Clostridium Difficile or Cancer Family History FAMILY HISTORY: Positive Family Cancer and Family Surgery; Negative Family Psychiatric Problems, Family Respiratory Disorders, Family Cardiac Disorders, Family Gastrointestinal Problems or Family Anesthesia Reaction Surgical History SURGICAL: Negative Abdominal Surgery or Nephrectomy Social History SMOKING STATUS: Smoking status: Former smoker ALCOHOL: Alcohol Intake: Current ALCOHOL FREQUENCY: Alcohol Intake Frequency: holidays/special occasions only HOUSING: Housing: House LIVES WITH: Lives With: Children, Family and Spouse HPI HPI Narrative 54M s/p seton placement 01/28/2025, here for follow up before ligation of fistula tract scheduled for 04/29. Patient reports that for the past few days he has noticed a lump lateral to where the seton is sitting. He has been managing the pain with sitz baths as well as aloe cream both of which do provide some relief. He has noted a slight increase in drainage which is intermittently bloody and purulent, and he relates this to constipation as he is not drinking as much water since it is not as hot outside. Overall he is still feels that the drainage is significantly decreased compared to when the seton was first placed ROS Review of Systems Systems Reviewed: All systems reviewed, normal except as documented Objective/Exam General General Appearance: alert, cooperative and well groomed Resp Respiratory exam: Absent respiratory distress Rectal Rectal exam: Present other (Left perianal seton in place with some purulent drainage from the external opening. There is an ulceration at the site where the external opening initially was, and the external opening is now slightly closer to the anal verge) Assessment & Plan Diagnosis / Problem List (1) Rectal fistula: Status: Acute Assessment & Plan: 54M with perianal fistula status post seton placement 01/28/2025. Patient is having slightly more pain but overall the area is healing as expected with no signs of active infection. Since the drainage is overall significantly decreased I did explain that we can continue with surgery as planned. All questions were answered and patient is agreeable with this plan Office Procedures GNS Level of Care Nursing/Assessment Patient Status: Established Patient Nursing Assessment/Reassesment: Medication Reconciliation, Update PMH in EMR and Vital Signs Coordination of Care: Complex Care and Chronic Disease 1-5, Education Complex Pt/Fam, Consent,records obtained, informed consent, Results/Orders obtained and Staff clarify orders Established Patient Charge Established Patient Point Assignment: 95 Established Patient Point Charge: EP Level 3 (80-115) Patient Portal Questionaires Social History Living Situation History Lives With: Spouse Housing: House Housing Other:: Pt lives with and dtr Tobacco History Smoking Status: Former smoker Alcohol History Alcohol Intake: Current Alcohol Intake Frequency: holidays/special occasions only Substance Use History Substance Use: NEVER Domestic Abuse History Do You Feel Safe at Home: Yes Review of Systems Report any current symptoms Only answer those that you have currently: Past Medical History Past Medical History Have you ever been diagnosed with any of the following: Neurological Problems Seizures: No Cardiology Problems Congestive Heart Failure: No Respiratory Problems Chronic Obstructive Pulmonary Disease (COPD): No Asthma: No Genital/Urinary Problems Renal Disease: No Endocrine Problems Diabetes Mellitus Type 1: No Diabetes Mellitus Type 2: No Blood Problems Sickle Cell Disease: No Other Problems Hospitalization: No Autoimmune Disease: No Shingles: No Blood Transfusions: No Blood Transfusion Reaction: No Anesthesia Reactions: No MRSA: No Vancomycin-Resistant Enterococci: No Clostridium Difficile: No Cancer: No
== END 2025-04-20 16:02 | disposition home or self-care (01) ==
LOC: HODSRG 15:20
PROVIDERS: PCP Nurse Practitioner Family; Referring Provider Nurse Practitioner Family; Supervising Provider Surgery; Visit Provider Surgery
DX: Z48.89 Encounter for other specified surgical aftercare (principal); L98.499 Non-pressure chronic ulcer of skin of other sites with unspecified severity
CPT/HCPCS: 99213; G0463

== ENCOUNTER → 2025-04-24 | Outpatient (CLI) | payer MEDICAID, SELFPAY ==
[2025-04-24 07:20] VITALS: BMI 36.5
[2025-04-24 09:06] LABS: INR 1.0 (0.9-1.3); Partial Thromboplastin Time 30.7 Seconds (22.0-36.0); Prothrombin Time 10.5 Seconds (9.0-12.2)
[2025-04-24 09:17] LABS: Anion Gap 7 (7-16); BUN/Creatinine Ratio 15 Ratio (12-20); Blood Urea Nitrogen 15 mg/dL (9-23); Calcium 8.9 mg/dL (8.3-10.6); Carbon Dioxide 26.6 mMol/L (20.0-31.0); Chloride 106 mMol/L (98-107); Creatinine (Component) 1.0 mg/dL (0.6-1.3); Estimated Creatinine Clearance 93.6 mL/min (>60); Glucose 112 mg/dL (74-106); Osmolality,Calculated 281 (275-295); Potassium 4.5 mMol/L (3.4-5.1); Sodium 140 mMol/L (136-145); eGFR > 60 See Note
[2025-04-24 09:32] LABS: Basophils # (Auto) 0.0 Thou/mm3 (0.0-0.2); Basophils % (Auto) 0 % (0-2.5); Eosinophils # (Auto) 0.2 Thou/mm3 (0.0-0.5); Eosinophils % (Auto) 2 % (0-10); Hematocrit 43.7 % (41.0-53.0); Hemoglobin 14.3 g/dL (13.5-16.0); Immature Granulocytes Auto 0.03 Thou/mm3 (0.00-0.00); Lymphocytes # (Auto) 2.3 Thou/mm3 (1.0-4.8); Lymphocytes % (Auto) 23 % (10-50); Mean Corpuscular HGB Conc 32.7 g/dl (31.0-37.0); Mean Corpuscular Hemoglobin 30.0 pg (25.0-35.0); Mean Corpuscular Volume 92 fL (80-100); Monocytes # (Auto) 1.0 Thou/mm3 (0.0-0.8); Monocytes % (Auto) 10 % (0-12); Neutrophils # (Auto) 6.5 Thou/mm3 (1.8-7.7); Neutrophils % (Auto) 65 % (37-80); Nucleated Red Blood Cell # 0.00 Thou/mm3 (0.00-0.00); Nucleated Red Blood Cell % 0 /100 WBC (0); Platelet Count 302 Thou/mm3 (140-440); RDW Standard Deviation 44.4 fL (35.1-43.9); Red Blood Count 4.77 Miln/mm3 (4.50-5.90); White Blood Count 10.0 Thou/mm3 (3.8-10.6)
== END | disposition home or self-care (01) ==
LOC: SLAB 04-30 08:05
PROVIDERS: PCP Nurse Practitioner Family; Referring Provider Surgery; Visit Provider Surgery
DX: K60.40 Rectal fistula, unspecified (principal)
CPT/HCPCS: 36415; 80048; 85025; 85610; 85730

== ENCOUNTER 2025-04-27 13:16 | Outpatient (AMB) | payer MEDICAID, SELFPAY ==
[2025-04-27 13:26] VITALS: BP 132/88; PULSE 83; RESP 18; TEMP 36.8; O2SAT 93; BMI 35.7
--- NOTE | 2025-04-27 13:26 | GSCOFFNT_ITS ---
Vital Signs - [facility] 04/27/25 13:26 Height 1.68 m Height Method Measured Weight 100.868 kg Weight Measurement Method Standing Scale BMI 35.7 BP 132/88 H Blood Pressure Source Automatic Cuff Blood Pressure Location Left Upper Arm Position Standing Respiration 18 Pulse 83 Pulse Source Monitor Temp 98.2 F Temp Source Temporal Artery Scan Pulse Oximetry (%) 93 L Oxygen Delivery Method Room Air Med/Allergies Allergies & Medications Allergies No Known Allergies Allergy (Verified 04/27/25 13:27) Medication Reconciliation tramadol 50 mg tablet 50 mg PO Q6H PRN pain #30 tabs 01/27/25 [Rx Confirmed 04/27/25] oxycodone-acetaminophen 5 mg-325 mg tablet (Percocet) 1 tab PO Q6H PRN pain #30 tabs 02/02/25 [Rx Confirmed 04/27/25] oxycodone-acetaminophen 5 mg-325 mg tablet (Percocet) 1 tab PO Q4H PRN pain #30 tabs 02/11/25 [Rx Confirmed 04/27/25] amoxicillin 500 mg-potassium clavulanate 125 mg tablet 1 tab PO BID #14 tabs 04/27/25 [Rx] ibuprofen 800 mg tablet 800 mg PO Q6H #30 tabs 04/27/25 [Rx] oxycodone-acetaminophen 5 mg-325 mg tablet (Percocet) 1 tab PO Q6H PRN pain #30 tabs 04/27/25 [Rx] MA Intake Visit Data Collection New Patient or Established: Established Patient (seen at [facility] within 3 years) Seen by Clinical Staff ONLY (RN/MA): No Reason for Visit:: RECTAL PAIN F/U Pain Present Currently: Yes Pain Location: Rectum Pain scale:: 10 (PT UNABLE TO SIT) Pain Scale Used: Deshpande-Dias/Numerical [employer] Officer Required: No PCP or OBGYN visit in last 3 months: Yes Hx Now: No Do You Feel Safe at Home: Yes Authorities Contacted: N/A Smoking Status Smoking Status: Never smoker Immunization / Flu Flu Vaccine in the Last 12 Months: Yes Flu Vaccine Exclusion Criteria: Already Received Past Medical History Past Medical History NEUROLOGIC: Negative Neurological Disorders or Seizures CARDIAC: Negative Cardiac Disorders or Congestive Heart Failure RESPIRATORY: Negative Chronic Obstructive Pulmonary Disease (COPD) or Asthma GASTROINTESTINAL: Negative Gastrointestinal Disorders GENITOURINARY: Negative Genitourinary Disorders or Renal Disease ENDOCRINE: Negative Endocrine Disorders, Diabetes Mellitus Type 1 or Diabetes Mellitus Type 2 HEMATOLOGIC: Negative Blood Disorders or Sickle Cell Disease OTHER HISTORY: Negative Hospitalization, Autoimmune Disease, Shingles, Blood Transfusions, Blood Transfusion Reaction, Anesthesia Reactions, Organ Transplant, Chemotherapy, Radiation Therapy, Hyperbaric Therapy, MRSA, Vancomycin-Resistant Enterococci, Clostridium Difficile or Cancer Family History FAMILY HISTORY: Positive Family Cancer and Family Surgery; Negative Family Psychiatric Problems, Family Respiratory Disorders, Family Cardiac Disorders, Family Gastrointestinal Problems or Family Anesthesia Reaction Surgical History SURGICAL: Negative Organ Transplant Social History SMOKING STATUS: Smoking status: Never smoker ALCOHOL: Alcohol Intake: Current ALCOHOL FREQUENCY: Alcohol Intake Frequency: holidays/special occasions only HOUSING: Housing: House LIVES WITH: Lives With: Children, Family and Spouse HPI HPI Narrative 54M with perianal fistula status post seton placement 01/28/2025 here due to an increase in pain. Pt states as of yesterday his pain increased to 20/10 and he considered going to ER but opted to wait. He also noted chills but this has resolved and he denies any recent constipation or diarrhea. He continues to have drainage from his known fistula ROS Review of Systems Systems Reviewed: All systems reviewed, normal except as documented Objective/Exam General General Appearance: alert, cooperative and well groomed Resp Respiratory exam: Absent respiratory distress Rectal Rectal exam: Present other (left gluteal cellulitis which is exquisitely tender to touch, no fluctuance. Left seton in place with purulent drainage) Assessment & Plan Diagnosis / Problem List (1) Rectal fistula: Status: Acute Assessment & Plan: 54M with perianal fistula status post seton placement 01/28/2025 now with gluteal cellulitis. Will postpone definitive surgery until cellulitis improves and drainage decreases (2) Cellulitis, gluteal, left: Status: Acute Assessment & Plan: Will prescribe a course of antibiotics and will postpone ligation of intersphincteric tract. I explained that in the setting of an active skin infection, surgery would confer a high risk of incisional infection Office Procedures GNS Level of Care Nursing/Assessment Patient Status: Established Patient Nursing Assessment/Reassesment: Medication Reconciliation, Update PMH in EMR and Vital Signs Coordination of Care: Complex Care and Chronic Disease 1-5, Education Complex Pt/Fam, Consent,records obtained, informed consent, Results/Orders obtained and Staff clarify orders Established Patient Charge Established Patient Point Assignment: 95 Established Patient Point Charge: Level 3 (80-115) Patient Portal Questionaires Social History Living Situation History Lives With: Spouse Housing: House Housing Other:: Pt lives with and dtr Tobacco History Smoking Status: Never smoker Alcohol History Alcohol Intake: Current Alcohol Intake Frequency: holidays/special occasions only Substance Use History Substance Use: NEVER Domestic Abuse History Do You Feel Safe at Home: Yes Review of Systems Report any current symptoms Only answer those that you have currently: Past Medical History Past Medical History Have you ever been diagnosed with any of the following: Neurological Problems Seizures: No Cardiology Problems Congestive Heart Failure: No Respiratory Problems Chronic Obstructive Pulmonary Disease (COPD): No Asthma: No Genital/Urinary Problems Renal Disease: No Endocrine Problems Diabetes Mellitus Type 1: No Diabetes Mellitus Type 2: No Blood Problems Sickle Cell Disease: No Other Problems Hospitalization: No Autoimmune Disease: No Shingles: No Blood Transfusions: No Blood Transfusion Reaction: No Anesthesia Reactions: No Organ Transplant: No Chemotherapy: No Radiation Therapy: No Hyperbaric Therapy: No MRSA: No Vancomycin-Resistant Enterococci: No Clostridium Difficile: No Cancer: No
== END 2025-04-27 13:52 | disposition home or self-care (01) ==
LOC: HODSRG 13:16
PROVIDERS: PCP Nurse Practitioner Family; Referring Provider Nurse Practitioner Family; Supervising Provider Surgery; Visit Provider Surgery
DX: L03.317 Cellulitis of buttock (principal); K60.40 Rectal fistula, unspecified
CPT/HCPCS: 99213; G0463

== ENCOUNTER 2025-05-04 11:08 | Outpatient (AMB) | payer MEDICAID, SELFPAY ==
[2025-05-04 11:13] VITALS: BP 122/70; PULSE 84; RESP 18; TEMP 36.2; O2SAT 93; BMI 34.9
--- NOTE | 2025-05-04 11:13 | GSCOFFNT_ITS ---
Vital Signs - [facility] 05/04/25 11:13 Height 1.68 m Height Method Measured Weight 98.486 kg Weight Measurement Method Standing Scale BMI 34.9 BP 122/70 Blood Pressure Source Automatic Cuff Blood Pressure Location Right Upper Arm Position Sitting Respiration 18 Pulse 84 Pulse Source Monitor Temp 97.1 F Temp Source Temporal Artery Scan Pulse Oximetry (%) 93 L Oxygen Delivery Method Room Air Med/Allergies Allergies & Medications Allergies No Known Allergies Allergy (Verified 05/04/25 11:14) Medication Reconciliation tramadol 50 mg tablet 50 mg PO Q6H PRN pain #30 tabs 01/27/25 [Rx Confirmed 05/04/25] oxycodone-acetaminophen 5 mg-325 mg tablet (Percocet) 1 tab PO Q6H PRN pain #30 tabs 02/02/25 [Rx Confirmed 05/04/25] oxycodone-acetaminophen 5 mg-325 mg tablet (Percocet) 1 tab PO Q4H PRN pain #30 tabs 02/11/25 [Rx Confirmed 05/04/25] ibuprofen 800 mg tablet 800 mg PO Q6H #30 tabs 04/27/25 [Rx Confirmed 05/04/25] amoxicillin 500 mg-potassium clavulanate 125 mg tablet 1 tab PO BID #14 tabs 05/04/25 [Rx] oxycodone-acetaminophen 5 mg-325 mg tablet (Percocet) 1 tab PO Q6H PRN pain #30 tabs 05/04/25 [Rx] MA Intake Visit Data Collection New Patient or Established: Established Patient (seen at [facility] within 3 years) Seen by Clinical Staff ONLY (RN/MA): No Reason for Visit:: 1 WEEK F/U Pain Present Currently: Yes Pain Location: Rectum Pain scale:: 5 Pain Scale Used: Deshpande-Dias/Numerical Sulphate Tester Required: No PCP or OBGYN visit in last 3 months: Yes Hx Now: No Do You Feel Safe at Home: Yes Authorities Contacted: N/A Smoking Status Smoking Status: Never smoker Immunization / Flu Flu Vaccine in the Last 12 Months: Yes Flu Vaccine Exclusion Criteria: Already Received Past Medical History Past Medical History NEUROLOGIC: Negative Neurological Disorders or Seizures CARDIAC: Negative Cardiac Disorders or Congestive Heart Failure RESPIRATORY: Negative Chronic Obstructive Pulmonary Disease (COPD) or Asthma GASTROINTESTINAL: Negative Gastrointestinal Disorders GENITOURINARY: Negative Genitourinary Disorders or Renal Disease ENDOCRINE: Negative Endocrine Disorders, Diabetes Mellitus Type 1 or Diabetes Mellitus Type 2 HEMATOLOGIC: Negative Blood Disorders or Sickle Cell Disease OTHER HISTORY: Negative Hospitalization, Autoimmune Disease, Shingles, Blood Transfusions, Blood Transfusion Reaction, Anesthesia Reactions, Organ Transplant, Chemotherapy, Radiation Therapy, Hyperbaric Therapy, MRSA, Vancomycin-Resistant Enterococci, Clostridium Difficile or Cancer Family History FAMILY HISTORY: Positive Family Cancer and Family Surgery; Negative Family Psychiatric Problems, Family Respiratory Disorders, Family Cardiac Disorders, Family Gastrointestinal Problems or Family Anesthesia Reaction Surgical History SURGICAL: Negative Organ Transplant Social History SMOKING STATUS: Smoking status: Never smoker ALCOHOL: Alcohol Intake: Current ALCOHOL FREQUENCY: Alcohol Intake Frequency: holidays/special occasions only HOUSING: Housing: House LIVES WITH: Lives With: Children, Family and Spouse HPI HPI Narrative 54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 At last visit I prescribed augmentin for the cellulitis and pt reports his pain is now down to 5/10; he is able to sit more comfortably although still not back to normal. Last week he noticed increased perianal drainage but it has since decreased. His BMs remain soft without any straining or diarrhea and he is continuing to take sitz baths ROS Review of Systems Systems Reviewed: All systems reviewed, normal except as documented Objective/Exam General General Appearance: alert, cooperative and well groomed Resp Respiratory exam: Absent respiratory distress Rectal Rectal exam: Present other (left gluteal cellulitis improved compared to last week's exam but still extends approx 3cm from anal verge. 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 The cellulitis has improved in appearance and symptomatically but is not fully resolved so I will prescribe another course of antibiotics. There is also a new area that is more lateral to the existing perianal fistula which drains pus when palpated; I explained that this could either represent an abscess or another fistula but as it is already draining I will hold off on any incision and drainage (as that could cause it to form a fistula) Plan: Augmentin 7 more days (2) Rectal fistula: Status: Acute Assessment & Plan: Will leave current seton in place while the cellulitis/gluteal abscess are active. All questions were answered and pt is agreeable with this plan Office Procedures GNS Level of Care Nursing/Assessment Patient Status: Established Patient Nursing Assessment/Reassesment: Medication Reconciliation, Update PMH in EMR and Vital Signs Coordination of Care: Complex Care and Chronic Disease 1-5, Education Complex Pt/Fam, Consent,records obtained, informed consent, Results/Orders obtained and Staff clarify orders Established Patient Charge Established Patient Point Assignment: 95 Established Patient Point Charge: EP Level 3 (80-115) Patient Portal Questionaires Social History Living Situation History Lives With: Spouse Housing: House Housing Other:: Pt lives with and dtr Tobacco History Smoking Status: Never smoker Alcohol History Alcohol Intake: Current Alcohol Intake Frequency: holidays/special occasions only Substance Use History Substance Use: NEVER Domestic Abuse History Do You Feel Safe at Home: Yes Review of Systems Report any current symptoms Only answer those that you have currently: Past Medical History Past Medical History Have you ever been diagnosed with any of the following: Neurological Problems Seizures: No Cardiology Problems Congestive Heart Failure: No Respiratory Problems Chronic Obstructive Pulmonary Disease (COPD): No Asthma: No Genital/Urinary Problems Renal Disease: No Endocrine Problems Diabetes Mellitus Type 1: No Diabetes Mellitus Type 2: No Blood Problems Sickle Cell Disease: No Other Problems Hospitalization: No Autoimmune Disease: No Shingles: No Blood Transfusions: No Blood Transfusion Reaction: No Anesthesia Reactions: No Organ Transplant: No Chemotherapy: No Radiation Therapy: No Hyperbaric Therapy: No MRSA: No Vancomycin-Resistant Enterococci: No Clostridium Difficile: No Cancer: No
== END 2025-05-04 11:41 | disposition home or self-care (01) ==
LOC: HODSRG 11:08
PROVIDERS: PCP Nurse Practitioner Family; Referring Provider Nurse Practitioner Family; Supervising Provider Surgery; Visit Provider Surgery
DX: L03.317 Cellulitis of buttock (principal); K60.40 Rectal fistula, unspecified
CPT/HCPCS: 99213; G0463

== ENCOUNTER 2025-05-11 13:38 | Outpatient (AMB) | payer MEDICAID, SELFPAY ==
--- NOTE | 2025-05-11 13:46 | PD.GSCLVISIT ---
Vital Signs - [facility] 05/11/25 13:52 Height 1.68 m Height Method Measured Weight 87.175 kg Weight Measurement Method Standing Scale BMI 30.9 BP 105/70 Blood Pressure Source Automatic Cuff Blood Pressure Location Left Upper Arm Position Sitting Respiration 18 Pulse 80 Pulse Source Monitor Temp 97.5 F Temp Source Temporal Artery Scan Pulse Oximetry (%) 97 Oxygen Delivery Method Room Air Med/Allergies Allergies & Medications Allergies No Known Allergies Allergy (Verified 05/11/25 13:53) Medication Reconciliation tramadol 50 mg tablet 50 mg PO Q6H PRN pain #30 tabs 01/27/25 [Rx Confirmed 05/11/25] oxycodone-acetaminophen 5 mg-325 mg tablet (Percocet) 1 tab PO Q6H PRN pain #30 tabs 02/02/25 [Rx Confirmed 05/11/25] oxycodone-acetaminophen 5 mg-325 mg tablet (Percocet) 1 tab PO Q4H PRN pain #30 tabs 02/11/25 [Rx Confirmed 05/11/25] ibuprofen 800 mg tablet 800 mg PO Q6H #30 tabs 04/27/25 [Rx Confirmed 05/11/25] amoxicillin 500 mg-potassium clavulanate 125 mg tablet 1 tab PO BID #14 tabs 05/04/25 [Rx Confirmed 05/11/25] oxycodone-acetaminophen 5 mg-325 mg tablet (Percocet) 1 tab PO Q6H PRN pain #30 tabs 05/04/25 [Rx Confirmed 05/11/25] mupirocin 2 % topical ointment (Centany) 1 applic topical BID #15 grams 05/11/25 [Rx] MA Intake Visit Data Collection New Patient or Established: Established Patient (seen at [facility] within 3 years) Seen by Clinical Staff ONLY (RN/MA): No Reason for Visit:: 2 WEEK POST OP LIGATION FISTULA Pain Present Currently: No Pain Scale Used: Deshpande-Dias/Numerical Business Partner Required: No PCP or OBGYN visit in last 3 months: Yes Hx Now: No Do You Feel Safe at Home: Yes Authorities Contacted: N/A Smoking Status Smoking Status: Never smoker Immunization / Flu Flu Vaccine in the Last 12 Months: Yes Flu Vaccine Exclusion Criteria: Already Received Past Medical History Past Medical History NEUROLOGIC: Negative Neurological Disorders or Seizures CARDIAC: Negative Cardiac Disorders or Congestive Heart Failure RESPIRATORY: Negative Chronic Obstructive Pulmonary Disease (COPD) or Asthma GASTROINTESTINAL: Negative Gastrointestinal Disorders GENITOURINARY: Negative Genitourinary Disorders or Renal Disease ENDOCRINE: Negative Endocrine Disorders, Diabetes Mellitus Type 1 or Diabetes Mellitus Type 2 HEMATOLOGIC: Negative Blood Disorders or Sickle Cell Disease OTHER HISTORY: Negative Hospitalization, Autoimmune Disease, Shingles, Blood Transfusions, Blood Transfusion Reaction, Anesthesia Reactions, Organ Transplant, Chemotherapy, Radiation Therapy, Hyperbaric Therapy, MRSA, Vancomycin-Resistant Enterococci, Clostridium Difficile or Cancer Family History FAMILY HISTORY: Positive Family Cancer and Family Surgery; Negative Family Psychiatric Problems, Family Respiratory Disorders, Family Cardiac Disorders, Family Gastrointestinal Problems or Family Anesthesia Reaction Surgical History SURGICAL: Negative Organ Transplant Social History SMOKING STATUS: Smoking status: Never smoker ALCOHOL: Alcohol Intake: Current ALCOHOL FREQUENCY: Alcohol Intake Frequency: holidays/special occasions only HOUSING: Housing: House LIVES WITH: Lives With: Children, Family and Spouse HPI HPI Narrative HISTORY OF PRESENT ILLNESS I, Ele Mckeon, have obtained verbal consent from the patient, to be recorded during this encounter which may include, but not limited to, medical history, examination, treatment plans, and relevant health information.? Patient was informed that recording will be read and reviewed by myself before inclusion in the medical chart. 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 He reports an improvement in his condition today, with a decrease in pain and a reduction in the size of the lump. He continues to experience drainage, although it is not excessive. He has been managing his symptoms with increased rest and sitz baths. His bowel movements remain regular, with no instances of constipation. He has been using pain medication as needed. ROS Review of Systems Systems Reviewed: All systems reviewed, normal except as documented Objective/Exam General General Appearance: alert, cooperative and well groomed Resp Respiratory exam: Absent respiratory distress Rectal Rectal exam: Present other (anterior left gluteal abscess with three punctate openings that drain pus when palpated, mildly tender with improved erythema. this area is approx 4cm from the anal verge. more medially the seton is in place with no surrounding erythema) Assessment & Plan Diagnosis / Problem List (1) Abscess of gluteal region: Status: Acute Assessment & Plan: The patient's condition has shown some improvement, with a reduction in redness and pain. However, there are still three areas that are draining. Continued use of sitz baths is recommended, and diapers or pads can be used as needed. An antibiotic ointment has been prescribed to aid in the healing process. The ointment should be applied to the bump after sitz baths and allowed to dry. If the drainage persists, further intervention such as the placement of additional seton may be considered. Risks, benefits, and alternatives of treatment were discussed, including the possibility of opening the area more to facilitate drainage, which carries the risk of creating a fistula if it is not already present. Pt expressed understanding and is agreeable to follow up in 2 weeks Office Procedures GNS Level of Care Nursing/Assessment Patient Status: Established Patient Nursing Assessment/Reassesment: Medication Reconciliation, Update PMH in EMR and Vital Signs Coordination of Care: Complex Care and Chronic Disease 1-5, Education Complex Pt/Fam, Consent,records obtained, informed consent, Results/Orders obtained and Staff clarify orders Established Patient Charge Established Patient Point Assignment: 95 Established Patient Point Charge: EP Level 3 (80-115) Patient Portal Questionaires Social History Living Situation History Lives With: Spouse Housing: House Housing Other:: Pt lives with and dtr Tobacco History Smoking Status: Never smoker Alcohol History Alcohol Intake: Current Alcohol Intake Frequency: holidays/special occasions only Substance Use History Substance Use: NEVER Domestic Abuse History Do You Feel Safe at Home: Yes Review of Systems Report any current symptoms Only answer those that you have currently: Past Medical History Past Medical History Have you ever been diagnosed with any of the following: Neurological Problems Seizures: No Cardiology Problems Congestive Heart Failure: No Respiratory Problems Chronic Obstructive Pulmonary Disease (COPD): No Asthma: No Genital/Urinary Problems Renal Disease: No Endocrine Problems Diabetes Mellitus Type 1: No Diabetes Mellitus Type 2: No Blood Problems Sickle Cell Disease: No Other Problems Hospitalization: No Autoimmune Disease: No Shingles: No Blood Transfusions: No Blood Transfusion Reaction: No Anesthesia Reactions: No Organ Transplant: No Chemotherapy: No Radiation Therapy: No Hyperbaric Therapy: No MRSA: No Vancomycin-Resistant Enterococci: No Clostridium Difficile: No Cancer: No
[2025-05-11 13:52] VITALS: BP 105/70; PULSE 80; RESP 18; TEMP 36.4; O2SAT 97; BMI 30.9
== END 2025-05-11 14:13 | disposition home or self-care (01) ==
LOC: HODSRG 13:38
PROVIDERS: Family Provider Nurse Practitioner Family; PCP Nurse Practitioner Family; Referring Provider Nurse Practitioner Family; Supervising Provider Surgery; Visit Provider Surgery
DX: L02.31 Cutaneous abscess of buttock (principal)
CPT/HCPCS: 99213; G0463

== ENCOUNTER 2025-05-25 09:36 | Outpatient (AMB) | payer MEDICAID, SELFPAY ==
--- NOTE | 2025-05-25 09:49 | PD.GSCLVISIT ---
Vital Signs - [facility] 05/25/25 09:50 Height 1.68 m Height Method Measured Weight 99.989 kg Weight Measurement Method Standing Scale BMI 35.4 BP 155/78 H Blood Pressure Source Automatic Cuff Blood Pressure Location Left Upper Arm Position Sitting Respiration 18 Pulse 79 Pulse Source Monitor Temp 97.7 F Temp Source Temporal Artery Scan Pulse Oximetry (%) 93 L Oxygen Delivery Method Room Air Med/Allergies Allergies & Medications Allergies No Known Allergies Allergy (Verified 05/25/25 09:51) Medication Reconciliation tramadol 50 mg tablet 50 mg PO Q6H PRN pain #30 tabs 01/27/25 [Rx Confirmed 05/25/25] oxycodone-acetaminophen 5 mg-325 mg tablet (Percocet) 1 tab PO Q6H PRN pain #30 tabs 02/02/25 [Rx Confirmed 05/25/25] oxycodone-acetaminophen 5 mg-325 mg tablet (Percocet) 1 tab PO Q4H PRN pain #30 tabs 02/11/25 [Rx Confirmed 05/25/25] ibuprofen 800 mg tablet 800 mg PO Q6H #30 tabs 04/27/25 [Rx Confirmed 05/25/25] mupirocin 2 % topical ointment (Centany) 1 applic topical BID #15 grams 05/11/25 [Rx Confirmed 05/25/25] amoxicillin 500 mg-potassium clavulanate 125 mg tablet 1 tab PO BID #14 tabs 05/14/25 [Rx Confirmed 05/25/25] oxycodone-acetaminophen 5 mg-325 mg tablet (Percocet) 1 tab PO Q6H PRN pain #30 tabs 05/25/25 [Rx] MA Intake Visit Data Collection New Patient or Established: Established Patient (seen at [facility] within 3 years) Seen by Clinical Staff ONLY (RN/MA): No Reason for Visit:: 2 WEEK F/U Pain Present Currently: No Pain Scale Used: Deshpande-Dias/Numerical Hides Inspector Required: No PCP or OBGYN visit in last 3 months: Yes Hx Now: No Do You Feel Safe at Home: Yes Authorities Contacted: N/A Smoking Status Smoking Status: Never smoker Immunization / Flu Flu Vaccine in the Last 12 Months: Yes Flu Vaccine Exclusion Criteria: Already Received Past Medical History Past Medical History NEUROLOGIC: Negative Neurological Disorders or Seizures CARDIAC: Negative Cardiac Disorders or Congestive Heart Failure RESPIRATORY: Negative Chronic Obstructive Pulmonary Disease (COPD) or Asthma GASTROINTESTINAL: Negative Gastrointestinal Disorders GENITOURINARY: Negative Genitourinary Disorders or Renal Disease ENDOCRINE: Negative Endocrine Disorders, Diabetes Mellitus Type 1 or Diabetes Mellitus Type 2 HEMATOLOGIC: Negative Blood Disorders or Sickle Cell Disease OTHER HISTORY: Negative Hospitalization, Autoimmune Disease, Shingles, Blood Transfusions, Blood Transfusion Reaction, Anesthesia Reactions, Organ Transplant, Chemotherapy, Radiation Therapy, Hyperbaric Therapy, MRSA, Vancomycin-Resistant Enterococci, Clostridium Difficile or Cancer Family History FAMILY HISTORY: Positive Family Cancer and Family Surgery; Negative Family Psychiatric Problems, Family Respiratory Disorders, Family Cardiac Disorders, Family Gastrointestinal Problems or Family Anesthesia Reaction Surgical History SURGICAL: Negative Organ Transplant Social History SMOKING STATUS: Smoking status: Never smoker ALCOHOL: Alcohol Intake: Current ALCOHOL FREQUENCY: Alcohol Intake Frequency: holidays/special occasions only HOUSING: Housing: House LIVES WITH: Lives With: Children, Family and Spouse HPI HPI Narrative 55M with perianal fistula s/p seton placement 01/28/2025 here for follow up of gluteal cellulitis s/p abscess. Pt reports feeling better with improved pain and for the last 3 days has noticed decreased drainage compared to previous weeks. It is difficult to tell whether there is any drainage from the original fistula but most of his discomfort is from the newer openings that are more on the gluteus than near the anal verge. His BMs remain soft without any straining or diarrhea and he has not taken any pain meds for the last few days ROS Review of Systems Systems Reviewed: All systems reviewed, normal except as documented Objective/Exam General General Appearance: alert, cooperative and well groomed Resp Respiratory exam: Absent respiratory distress Rectal Rectal exam: Present other (left perianal seton in place approx 1cm from anal verge, no erythema at this site. At the left gluteus approx 4-5cm from the anal verge there are now two openings with drainage, they are mildly tender with minimal erythema which is improved from prior exams) Assessment & Plan Diagnosis / Problem List (1) Rectal fistula: Status: Acute Assessment & Plan: 55M with perianal fistula status post seton placement 01/28/2025 here for follow up of gluteal cellulitis, with two openings at the gluteus concerning for new fistulae. Given their appearance and that they have continued to drain for weeks, I explained that these new openings are consistent with new fistulae and recommended placing setons into these tracts as well. As it is difficult to determine if the previous fistula is currently draining I recommended leaving that one in for now. Pt understands that I cannot predict how long he will need these setons nor how many more surgeries he may require. All questions were answered and pt is agreeable to proceeding with surgery Plan: EUA with seton placement for new left gluteal fistulae Office Procedures GNS Level of Care Nursing/Assessment Patient Status: Established Patient Nursing Assessment/Reassesment: Medication Reconciliation, Update PMH in EMR and Vital Signs Coordination of Care: Complex Care and Chronic Disease 1-5, Education Complex Pt/Fam, Consent,records obtained, informed consent, Results/Orders obtained and Staff clarify orders Established Patient Charge Established Patient Point Assignment: 95 Established Patient Point Charge: EP Level 3 (80-115) Patient Portal Questionaires Social History Living Situation History Lives With: Spouse Housing: House Housing Other:: Pt lives with and dtr Tobacco History Smoking Status: Never smoker Alcohol History Alcohol Intake: Current Alcohol Intake Frequency: holidays/special occasions only Substance Use History Substance Use: NEVER Domestic Abuse History Do You Feel Safe at Home: Yes Review of Systems Report any current symptoms Only answer those that you have currently: Past Medical History Past Medical History Have you ever been diagnosed with any of the following: Neurological Problems Seizures: No Cardiology Problems Congestive Heart Failure: No Respiratory Problems Chronic Obstructive Pulmonary Disease (COPD): No Asthma: No Genital/Urinary Problems Renal Disease: No Endocrine Problems Diabetes Mellitus Type 1: No Diabetes Mellitus Type 2: No Blood Problems Sickle Cell Disease: No Other Problems Hospitalization: No Autoimmune Disease: No Shingles: No Blood Transfusions: No Blood Transfusion Reaction: No Anesthesia Reactions: No Organ Transplant: No Chemotherapy: No Radiation Therapy: No Hyperbaric Therapy: No MRSA: No Vancomycin-Resistant Enterococci: No Clostridium Difficile: No Cancer: No
[2025-05-25 09:50] VITALS: BP 155/78; PULSE 79; RESP 18; TEMP 36.5; O2SAT 93; BMI 35.4
== END 2025-05-25 10:18 | disposition home or self-care (01) ==
LOC: HODSRG 09:36
PROVIDERS: PCP Nurse Practitioner Family; Referring Provider Nurse Practitioner Family; Supervising Provider Surgery; Visit Provider Surgery
DX: K60.40 Rectal fistula, unspecified (principal)
CPT/HCPCS: 99213; G0463

== ENCOUNTER 2025-06-03 05:35 | Day surgery (SDC) | payer MEDICAID, SELFPAY ==
[2025-06-02 10:01] VITALS: BMI 35.5
[2025-06-02 10:34] LABS: Basophils # (Auto) 0.0 Thou/mm3 (0.0-0.2); Basophils % (Auto) 1 % (0-2.5); Eosinophils # (Auto) 0.3 Thou/mm3 (0.0-0.5); Eosinophils % (Auto) 4 % (0-10); Hematocrit 44.6 % (41.0-53.0); Hemoglobin 15.0 g/dL (13.5-16.0); Immature Granulocytes Auto 0.02 Thou/mm3 (0.00-0.00); Lymphocytes # (Auto) 2.6 Thou/mm3 (1.0-4.8); Lymphocytes % (Auto) 33 % (10-50); Mean Corpuscular HGB Conc 33.6 g/dl (31.0-37.0); Mean Corpuscular Hemoglobin 29.8 pg (25.0-35.0); Mean Corpuscular Volume 89 fL (80-100); Monocytes # (Auto) 0.6 Thou/mm3 (0.0-0.8); Monocytes % (Auto) 8 % (0-12); Neutrophils # (Auto) 4.3 Thou/mm3 (1.8-7.7); Neutrophils % (Auto) 55 % (37-80); Nucleated Red Blood Cell # 0.00 Thou/mm3 (0.00-0.00); Nucleated Red Blood Cell % 0 /100 WBC (0); Platelet Count 322 Thou/mm3 (140-440); RDW Standard Deviation 41.8 fL (35.1-43.9); Red Blood Count 5.03 Miln/mm3 (4.50-5.90); White Blood Count 7.8 Thou/mm3 (3.8-10.6)
[2025-06-02 10:53] LABS: INR 1.0 (0.9-1.3); Partial Thromboplastin Time 28.8 Seconds (22.0-36.0); Prothrombin Time 10.6 Seconds (9.0-12.2)
[2025-06-02 10:57] LABS: Anion Gap 9 (7-16); BUN/Creatinine Ratio 17 Ratio (12-20); Blood Urea Nitrogen 15 mg/dL (9-23); Calcium 9.3 mg/dL (8.3-10.6); Carbon Dioxide 26.6 mMol/L (20.0-31.0); Chloride 106 mMol/L (98-107); Creatinine (Component) 0.9 mg/dL (0.6-1.3); Estimated Creatinine Clearance 101.4 mL/min (>60); Glucose 105 mg/dL (74-106); Osmolality,Calculated 283 (275-295); Potassium 4.4 mMol/L (3.4-5.1); Sodium 142 mMol/L (136-145); eGFR > 60 See Note
[2025-06-03] VITALS (8 sets, daily range): BP systolic 103–135; BP diastolic 66–87; PULSE 55–76; RESP 15–20; TEMP 36.4–36.9; O2SAT 95–98; BMI 35.3
--- NOTE | 2025-06-03 07:20 | CHAP ---
Visited with patient and gave encouragement and prayer before patient's procedure.
--- NOTE | 2025-06-03 08:12 | PD.SUROPNT ---
Date of Procedure 06/03/25 Pre Op Diagnosis Perianal fistulae Post Op Diagnosis Same Procedure Examination under anesthesia, placement of seton x2 Findings Two additional left perianal fistulae Procedure Description After discussion of risks and benefits, patient was brought to the operating room, SCDs were placed and general anesthesia with LMA was induced. He was placed in lithotomy position with proper padding and was prepped and draped in the usual sterile fashion. After timeout the area was examined and there were 2 new fistula openings at the left gluteus, each approximately 5 cm away from the anal verge, and both posterior. The more posterior of the 2 was first cannulated with a probe and the anterior opening was easily found. A seton was tied to the probe and brought back through the exterior opening so that the seton could be tied to itself using interrupted 0 silk ties. The more anterior of the 2 external openings was then cannulated and found to track to the exterior opening of the seton that was already in place. In the same fashion a seton was tied to the probe and the probe brought back through the external opening so that the seton could be tied to itself. A left pudendal nerve block was performed as well as a local block for a total of 30 cc of half percent Marcaine. Patient was returned to supine position and extubated without complication. He was brought to PACU in stable condition Pathology / specimen None Estimated Blood Loss 10 Surgeon Ele Mckeon MD Surgical Staff Operation Date: 06/03/25 07:30 Case Staff Anesthesiologist: Dc Gorman
--- NOTE | 2025-06-03 08:15 | PD.SURDS ---
Planned Discharge Date 06/03/25 DS: Providers Provider Primary care physician: MOI Johnson Attending Provider on Admission: Ele Mckeon MD Attending Provider on DC: Ele Mckeon MD Discharging Provider: Ele Mckeon MD Diagnosis Discharge Diagnosis (1) Rectal fistula: Status: Acute Problem List Completed Was Problem List Reviewed/Reconciled?: Yes Exam Vital Signs Temp Pulse Resp BP Pulse Ox 97.6 F 55 L 16 135/71 H 96 06/03/25 06:00 06/03/25 06:00 06/03/25 06:00 06/03/25 06:00 06/03/25 06:00 Discharge Plan Plan Patient Disposition: HOME (Self Care) Prescriptions/Referrals Prescriptions/Med Rec: New oxycodone-acetaminophen [Percocet] 5-325 mg tablet 1 tab PO Q4HR MDD 6 tabs PRN (Reason: pain) Qty: 60 0RF Rx Instructions: Take 1 tablet as needed every 4-6 hours for moderate to severe pain No Action oxycodone-acetaminophen [Percocet] 5-325 mg tablet 1 tab PO Q6H MDD 6 tabs PRN (Reason: pain) Qty: 30 0RF Rx Instructions: Take 1 tablet as needed every 4-6 hours for moderate to severe pain Referrals: Erna ARMENDARIZ,MOI Julio [Primary Care Provider] Ele Mckeon MD [Physician, General Surgery] Patient/Caregiver Discharge Instructions Other Discharge Activity Instructions:: Take sitz baths as needed for up to 15 minutes at a time starting tomorrow 06/04/25 Avoid constipation and diarrhea Drink plenty of water daily and take fiber If you develop difficulty urinating, fever, pain not controlled with medications please seek care in ER For any non-urgent concern please call the office at [phone] during business hours M-F 8-4pm except 12-1pm Education Materials: Anesthesia: General Anesthesia, Surgery Anesthesia After, Preventing Surgical Site Infections, Taking a Sitz Bath, ED Anal Fistula, [facility] General SDC Instructions- Kiswahili Print Language: Kiswahili Stand Alone Forms: [employer]ara Award Info., Patient Portal Info Letter Discharge Order Discharge Orders: Discharge (Routine); Ordered 06/03/25 Ordered By: Ele Mckeon Results Results: Laboratory Laboratory results: results reviewed PROCEDURES: Procedure Date 06/03/25 Procedures Examination under anesthesia, placement of seton x2
--- NOTE | 2025-06-03 08:20 | SUR.PHASEI ---
0820: Pt. wakes to name then drifts back to sleep, vitals stable, breathing unlabored, no signs of distress, Dressing to rectum has scant amount of drainage, report received from Sharonda RODGERS, Angel RODGERS, and MD Gorman.
[2025-06-03] MEDS: fentaNYL CIT INJ 50 mCg/ML AMP 2ML 25 MCG IVP ×2 (08:49→08:54)
--- NOTE | 2025-06-03 09:20 | SUR.PHASEII ---
0920: Pt. AAOx4, vitals stable, breathing unlabored, no complaint of pain or nausea, dressing to rectum has same amount of drainage as arrival to PACU, pt. tolerated sips of water well, pt. ambulated to wheelchair with steady gait and no assist, no complications. Gave discharge instructions to the pt. and his ride, both verbalized understanding and had no further questions. Pt. left with all personal belongings.
== END 2025-06-03 09:20 | disposition home or self-care (01) ==
PROVIDERS: PCP Nurse Practitioner Family; Referring Provider Surgery; Visit Provider Surgery
PROC: (CPT 46020; principal; 2025-06-03 07:30)
DX: K60.30 Anal fistula, unspecified (principal)
CPT/HCPCS: 46020; 36415; 80048; 85025; 85610; 85730; A4217; A4649; J0131; J0461; J1100; J1885; J2250; J2405; J2704; J3010; J3490

== ENCOUNTER 2025-06-15 10:24 | Outpatient (AMB) | payer MEDICAID, SELFPAY ==
[2025-06-15 11:06] VITALS: BP 138/78; PULSE 72; RESP 18; TEMP 36.7; O2SAT 93; BMI 35.2
--- NOTE | 2025-06-15 11:06 | GSCOFFNT_ITS ---
Vital Signs - [facility] 06/15/25 11:06 Height 1.68 m Height Method Measured Weight 99.535 kg Weight Measurement Method Standing Scale BMI 35.2 BP 138/78 H Blood Pressure Source Automatic Cuff Blood Pressure Location Left Upper Arm Position Sitting Respiration 18 Pulse 72 Pulse Source Monitor Temp 98.0 F Temp Source Temporal Artery Scan Pulse Oximetry (%) 93 L Oxygen Delivery Method Room Air Med/Allergies Allergies & Medications Allergies No Known Allergies Allergy (Verified 06/15/25 11:07) Medication Reconciliation oxycodone-acetaminophen 5 mg-325 mg tablet (Percocet) 1 tab PO Q6H PRN pain #30 tabs 05/25/25 [Rx Confirmed 06/15/25] docusate sodium 100 mg capsule (Colace) 100 mg PO QDAY PRN constipation #30 caps 06/03/25 [Rx Confirmed 06/15/25] oxycodone-acetaminophen 5 mg-325 mg tablet (Percocet) 1 tab PO Q4HR PRN pain #60 tabs 06/15/25 [Rx] MA Intake Visit Data Collection New Patient or Established: Established Patient (seen at [facility] within 3 years) Seen by Clinical Staff ONLY (RN/MA): No Reason for Visit:: 2 WEEK POST OP Pain Present Currently: Yes Pain Scale Used: Deshpande-Dias/Numerical Crown Blocker Required: No PCP or OBGYN visit in last 3 months: Yes Hx Now: No Do You Feel Safe at Home: Yes Authorities Contacted: N/A Smoking Status Smoking Status: Never smoker Immunization / Flu Flu Vaccine in the Last 12 Months: Yes Flu Vaccine Exclusion Criteria: Already Received Past Medical History Past Medical History NEUROLOGIC: Negative Neurological Disorders or Seizures CARDIAC: Negative Cardiac Disorders or Congestive Heart Failure RESPIRATORY: Negative Chronic Obstructive Pulmonary Disease (COPD) or Asthma GASTROINTESTINAL: Negative Gastrointestinal Disorders GENITOURINARY: Negative Genitourinary Disorders or Renal Disease ENDOCRINE: Negative Endocrine Disorders, Diabetes Mellitus Type 1 or Diabetes Mellitus Type 2 HEMATOLOGIC: Negative Blood Disorders or Sickle Cell Disease OTHER HISTORY: Negative Hospitalization, Autoimmune Disease, Shingles, Blood Transfusions, Blood Transfusion Reaction, Anesthesia Reactions, Organ Transplant, Chemotherapy, Radiation Therapy, Hyperbaric Therapy, MRSA, Vancomycin-Resistant Enterococci, Clostridium Difficile or Cancer Family History FAMILY HISTORY: Positive Family Cancer and Family Surgery; Negative Family Psychiatric Problems, Family Respiratory Disorders, Family Cardiac Disorders, Family Gastrointestinal Problems or Family Anesthesia Reaction Surgical History SURGICAL: Negative Organ Transplant Social History SMOKING STATUS: Smoking status: Never smoker ALCOHOL: Alcohol Intake: Current ALCOHOL FREQUENCY: Alcohol Intake Frequency: holidays/special occasions only HOUSING: Housing: House LIVES WITH: Lives With: Children, Family and Spouse HPI HPI Narrative 55M with perianal fistula s/p seton placement 01/28/2025, course complicated by new fistula opening s/p placement of two additional setons 06/03 here for planned follow up. Pt reports feeling better after this recent surgery, with less pain and he is able to sit more comfortably. He is continuing to have drainage and notices it is more yellow than bloody as it had been before. His BMs remain soft without any straining or diarrhea, he is taking pain meds and using colace which helps with regularity ROS Review of Systems Systems Reviewed: All systems reviewed, normal except as documented Objective/Exam General General Appearance: alert, cooperative and well groomed Resp Respiratory exam: Absent respiratory distress Assessment & Plan Diagnosis / Problem List (1) Rectal fistula: Status: Acute Assessment & Plan: 55M with perianal fistula s/p seton placement 01/28/2025, with development of two additional fistulae s/p seton placement x2 06/03/25, recovering well overall with ongoing drainage Plan: Pt requested refill of pain medication which was ordered but may be too soon F/u in 6 weeks Office Procedures GNS Level of Care Nursing/Assessment Patient Status: Established Patient Nursing Assessment/Reassesment: Medication Reconciliation, Update PMH in EMR and Vital Signs Coordination of Care: Complex Care and Chronic Disease 1-5, Education Complex Pt/Fam, Consent,records obtained, informed consent, Results/Orders obtained and Staff clarify orders Established Patient Charge Established Patient Point Assignment: 95 Established Patient Point Charge: EP Level 3 (80-115) Patient Portal Questionaires Social History Living Situation History Lives With: Spouse Housing: House Housing Other:: Pt lives with and dtr Tobacco History Smoking Status: Never smoker Alcohol History Alcohol Intake: Current Alcohol Intake Frequency: holidays/special occasions only Substance Use History Substance Use: NEVER Domestic Abuse History Do You Feel Safe at Home: Yes Review of Systems Report any current symptoms Only answer those that you have currently: Past Medical History Past Medical History Have you ever been diagnosed with any of the following: Neurological Problems Seizures: No Cardiology Problems Congestive Heart Failure: No Respiratory Problems Chronic Obstructive Pulmonary Disease (COPD): No Asthma: No Genital/Urinary Problems Renal Disease: No Endocrine Problems Diabetes Mellitus Type 1: No Diabetes Mellitus Type 2: No Blood Problems Sickle Cell Disease: No Other Problems Hospitalization: No Autoimmune Disease: No Shingles: No Blood Transfusions: No Blood Transfusion Reaction: No Anesthesia Reactions: No Organ Transplant: No Chemotherapy: No Radiation Therapy: No Hyperbaric Therapy: No MRSA: No Vancomycin-Resistant Enterococci: No Clostridium Difficile: No Cancer: No
== END 2025-06-15 11:14 | disposition home or self-care (01) ==
LOC: HODSRG 10:24
PROVIDERS: PCP Nurse Practitioner Family; Referring Provider Nurse Practitioner Family; Supervising Provider Surgery; Visit Provider Surgery
DX: K60.40 Rectal fistula, unspecified (principal)
CPT/HCPCS: 99213; G0463